=== PATIENT | male | born 1960 | race African-American/Black ===

== ENCOUNTER 2016-05-27 18:58 | Emergency (ER) | payer MEDICARE ==
[2016-05-27 19:08] VITALS: BP 123/65
--- NOTE | 2016-05-27 20:21 | ER Document Report ---
HPI - HPI Patient complains to provider of: body aches Pain Level: 5 Context: patient is a 55 year old female p/w chronic right hip pain and new onset body aches. patient states that he woke up about two days ago and had pain all over that is achy and is different then his normal chronic pain. he takes lyrica, diclofenac and cyclobenzaprine but these are not helping with his new body aches. he denies any fevers, chills, ENT symptoms, n/v, abdominal pain. He has been tolerating PO without difficulty, denies any urinary symptoms he states he is not able to take motrin because of his poor kidney function which he cannot speak into detail about regarding severity. he is not on dialysis new to the area, has a PCP but doesnt know his name and is due to see him for the first time this week Past medical history significant for ulcer arthritis, hype pressure, kidney disease undisclosed stage. - DERM Skin Color: Normal Past Medical History - Social History Smoking Status: Never Smoker Family History: Reviewed & Not Pertinent Patient has suicidal ideation: No Patient has homicidal ideation: No Renal/ Medical History: Denies: Hx Peritoneal Dialysis Vertical Provider Document - CONSTITUTIONAL Agree With Documented VS: Yes Exam Limitations: No Limitations General Appearance: WD/WN, No Apparent Distress Notes: PHYSICAL EXAM GENERAL: Alert, interacts well. HEAD: Normocephalic, atraumatic. EYES: Pupils equal, round, and reactive to light. Extraocular movements intact. ENT: Oral mucosa moist, tongue midline. NECK: Full range of motion. Supple. Trachea midline. LUNGS: Clear to auscultation bilaterally, no wheezes, rales, or rhonchi. No respiratory distress. HEART: Regular rate and rhythm. No murmurs, gallops, or rubs. ABDOMEN: Soft, nondistended, nontender. No guarding, rebound, or rigidity.. Bowel sounds present in all 4 quadrants. EXTREMITIES: Moves all 4 extremities spontaneously. No edema, radial and dorsalis pedis pulses 2/4 bilaterally. No cyanosis. FROM NEUROLOGICAL: Alert and oriented x4. Normal speech. PSYCH: Normal affect, normal mood. SKIN: Warm, dry, normal turgor. No rashes or lesions noted. - INFECTION CONTROL TRAVEL OUTSIDE OF THE [place] IN LAST 30 DAYS: No - RESPIRATORY O2 Sat by Pulse Oximetry: 100 - DERM Integumentary: Dry Course - Re-evaluation Re-evalutation: 05/27/16 21:49 Discussed with patient that we do not manage chronic pain guarding his body aches in questional history of chronic kidney disease, a urinalysis and basic metabolic panel were sent. There were no electrolyte abnormalities or evidence of dehydration or elevated renal function. No evidence of dehydration on urinalysis. Discussed with patient to follow-up with primary care on this coming week. - Vital Signs Vital signs: Temp Pulse Resp BP Pulse Ox 97.7 F 75 18 123/65 100 05/27/16 19:05 05/27/16 19:05 05/27/16 19:05 05/27/16 19:05 05/27/16 19:05 - Laboratory Result Diagrams: 05/27/16 20:15 Discharge - Discharge Clinical Impression: Body aches, Chronic pain Condition: Good Disposition: HOME, SELF-CARE Additional Instructions: There were no acute findings on your blood work today Please follow up with your primary care doctor this week Chronic Pain Control Stress, inactivity, and depression make pain more severe regardless of the cause of the pain. Stress and poor physical condition can cause pain such as headaches and backache. Relaxation: Rest in a quiet place with your eyes closed for 20 minutes twice daily. Concentrate on a pleasant image, or simply "feel" your breathing. Clear your mind. Stress management: Deal with your "stressors." Either take action, or eliminate the stressor from your life. Don't let things hang over you. Accept those things you can't change. Nutrition: Eat small, balanced meals -- don't skip, don't overeat. Meals should be high-carbohydrate, low-sugar, low-fat. Exercise: Exercise helps painful conditions and eases stress. Get 30 minutes of moderate exercise, five days a week. Do an activity that does not flare your pain. Precautions: Pain which continues to disrupt daily activities, or which changes in nature, requires a medical evaluation. Pain Clinic referral is available. We do not manage chronic pain in the Emergency Department. 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 We do not provide repeated medication management of chronic painful conditions. If you wish, we can provide the name of local pain management physicians.
[2016-05-27 20:39] LABS: APPEARANCE,URINE CLEAR; BILIRUBIN,URINE NEGATIVE (NEGATIVE); GLUCOSE, URINE NEGATIVE (NEGATIVE); KETONES,URINE NEGATIVE (NEGATIVE); LEUKOCYTE ESTERASE,URINE NEGATIVE (NEGATIVE); NITRITE,URINE NEGATIVE (NEGATIVE); PROTEIN,URINE NEGATIVE (NEGATIVE); URINE SPECIFIC GRAVITY 1.011; UROBILINOGEN,URINE NEGATIVE mg/dL (<2.0)
[2016-05-27 20:54] LABS: ANION GAP 10 (5-19); BLOOD UREA NITROGEN 13 mg/dL (7-20); CALCIUM 9.9 mg/dL (8.4-10.2); CARBON DIOXIDE 27 mmol/L (22-30); CHLORIDE 107 mmol/L (98-107); CREATINE KINASE 116 U/L (55-170); CREATININE RESULT 1.24 mg/dL (0.52-1.25); GLUCOSE 87 mg/dL (75-110); MAGNESIUM 1.9 mg/dL (1.6-2.3); POTASSIUM 4.8 mmol/L (3.6-5.0); SODIUM 143.9 mmol/L (137-145)
== END 2016-05-27 21:10 | disposition home or self-care (01) ==
LOC: ER 18:58
DX: M79.1 Myalgia (principal); G89.29 Other chronic pain; M25.551 Pain in right hip; I12.9 Hypertensive chronic kidney disease with stage 1 through stage 4 chronic kidney disease, or unspecified chronic kidney disease; N18.9 Chronic kidney disease, unspecified
CPT/HCPCS: 36415; 80048; 81001; 82550; 83735; 99283

== ENCOUNTER 2016-11-05 05:30 | Emergency (ER) | payer MEDICARE, MEDICAID ==
[2016-11-05] MEDS ORDERED: LIDOCAINE 5% (700 MG) TRANSDERMAL ADH..PATCH TP ONE (06:31)
--- NOTE | 2016-11-05 07:30 | ER Document Report ---
ED General - General Chief Complaint: Hip Pain Stated Complaint: HIP PAIN Time Seen by Provider: 11/05/16 06:04 TRAVEL OUTSIDE OF THE [place] IN LAST 30 DAYS: No - HPI Patient complains to provider of: Left hip pain Notes: Patient coming in for evaluation left hip pain. Patient states history of arthritis hip pain increased over the last 2 days states pain radiates from his left hip down the anterior portion of his thigh to his knee down to his ankle. Denies any pain in the back of his leg. Denies any history of trauma. Patient states no relief with his medications at home which include Lyrica and Percocet. Patient is resting comfortably upon my evaluation per - Related Data Allergies/Adverse Reactions: No Known Allergies Allergy (Unverified 11/05/16 05:32) Past Medical History - Social History Smoking Status: Unknown if Ever Smoked Family History: Reviewed & Not Pertinent - Past Medical History Cardiac Medical History: Reports: Hx Hypertension Renal/ Medical History: Denies: Hx Peritoneal Dialysis Musculoskeltal Medical History: Reports Hx Arthritis Review of Systems - Review of Systems Constitutional: No symptoms reported EENT: No symptoms reported Cardiovascular: No symptoms reported Respiratory: No symptoms reported Gastrointestinal: No symptoms reported Genitourinary: No symptoms reported Male Genitourinary: No symptoms reported Musculoskeletal: Other - hip pain Skin: No symptoms reported Hematologic/Lymphatic: No symptoms reported Neurological/Psychological: No symptoms reported -: Yes All other systems reviewed and negative Physical Exam - Vital signs Vitals: Temp Pulse Resp BP Pulse Ox 97.4 F 77 17 140/85 H 99 11/05/16 05:34 11/05/16 05:34 11/05/16 05:34 11/05/16 05:34 11/05/16 05:34 Interpretation: Normal - General General appearance: Appears well, Alert - HEENT Head: Normocephalic, Atraumatic Eyes: Normal Pupils: PERRL - Respiratory Respiratory status: No respiratory distress Chest status: Nontender Breath sounds: Normal Chest palpation: Normal - Cardiovascular Rhythm: Regular Heart sounds: Normal auscultation Murmur: No - Abdominal Inspection: Normal Distension: No distension Bowel sounds: Normal Tenderness: Nontender Organomegaly: No organomegaly - Back Back: Normal, Nontender - Extremities General upper extremity: Normal inspection, Nontender, Normal color, Normal ROM , Normal temperature General lower extremity: Normal inspection, Tender - Tenderness to palpation of the left hip, Normal color, Normal ROM, Normal temperature, Normal weight bearing. No: Tari's sign - Neurological Neuro grossly intact: Yes Cognition: Normal Orientation: AAOx4 [place] Coma Scale Eye Opening: Spontaneous [place] Coma Scale Verbal: Oriented [place] Coma Scale Motor: Obeys Commands Arrow[place] Coma Scale Total: 15 Speech: Normal Motor strength normal: LUE, RUE, LLE, RLE Sensory: Normal - Psychological Associated symptoms: Normal affect, Normal mood - Skin Skin Temperature: Warm Skin Moisture: Dry Skin Color: Normal Course - Re-evaluation Re-evalutation: 11/05/16 13:57 X-rays negative patient will be discharged on follow-up primary care physician more likely underlying etiology exacerbation of patient's arthritis pain - Vital Signs Vital signs: Temp Pulse Resp BP Pulse Ox 98.0 F 57 L 18 120/72 99 11/05/16 08:37 11/05/16 08:37 11/05/16 08:37 11/05/16 08:37 11/05/16 08:37 Discharge - Discharge Clinical Impression: Hip pain Qualifiers: Laterality: left Qualified Code(s): M25.552 - Pain in left hip Condition: Good Disposition: HOME, SELF-CARE Instructions: Arthralgia ([facility]), Arthritis ([facility]), Ice Packs ([facility]), Warm Packs ( [facility]) Additional Instructions: Your x-ray does not show any signs of any acute pathology there are arthritic changes of the left hip. More likely you are having referred pain from her arthritis. I will start you on a dose of steroids that should help out in the next few days. Continue to take her pain medication at home as prescribed he may also use ice and heat packs. Prescriptions: Prednisone [Deltasone] 60 mg PO DAILY #24 tablet Forms: Return to Work
--- NOTE | 2016-11-05 07:31 | RADIOLOGY REPORT (SQ) ---
EXAM DESCRIPTION: HIP LEFT AP/LATERAL COMPLETED DATE/TIME: 11/05/2016 7:12 am REASON FOR STUDY: pain COMPARISON: None. NUMBER OF VIEWS: Two views. TECHNIQUE: AP pelvis and additional frog-leg view of the left hip. LIMITATIONS: None. FINDINGS: MINERALIZATION: Normal. LEFT HIP: No fracture or dislocation. No worrisome bone lesions. RIGHT HIP: No fracture or dislocation. No worrisome bone lesions. Right total hip arthroplasty with 0.2 cm nonspecific lucency at the medial aspect of the acetabular component. PUBIS AND ISCHIUM: No fracture. PELVIS: No fracture. Lower pelvic clips. SACRUM: No fracture or dislocation. No worrisome bone lesions. LOWER LUMBAR SPINE: L3-S1 hardware fusion and intervertebral disc replacement. SOFT TISSUES: No findings. OTHER: No other significant finding. IMPRESSION: No acute findings. TECHNICAL DOCUMENTATION: JOB ID: [id number] [employer]- All Rights Reserved
[2016-11-05] MEDS ORDERED: PREDNISONE 20 MG TABLET PO ONE (08:13)
[2016-11-05 08:39] VITALS: BP 120/72
== END 2016-11-05 08:39 | disposition home or self-care (01) ==
LOC: ER 05:30
DX: M25.552 Pain in left hip (principal); M16.12 Unilateral primary osteoarthritis, left hip
CPT/HCPCS: 99283; 73502; A9270; J7512

== ENCOUNTER 2016-11-18 18:43 | Emergency (ER) | payer MEDICARE, MEDICAID ==
[2016-11-18 20:58] LABS: APPEARANCE,URINE CLEAR; BILIRUBIN,URINE NEGATIVE (NEGATIVE); GLUCOSE, URINE NEGATIVE (NEGATIVE); KETONES,URINE NEGATIVE (NEGATIVE); LEUKOCYTE ESTERASE,URINE NEGATIVE (NEGATIVE); NITRITE,URINE NEGATIVE (NEGATIVE); PROTEIN,URINE NEGATIVE (NEGATIVE); URINE SPECIFIC GRAVITY 1.009; UROBILINOGEN,URINE NEGATIVE mg/dL (<2.0)
[2016-11-18 21:01] LABS: ABSOLUTE LYMPHOCYTES (AUTO) 1.2 10^3/uL (0.5-4.7); ABSOLUTE MONOCYTES (AUTO) 0.6 10^3/uL (0.1-1.4); ABSOLUTE NEUT (AUTO) 9.2 10^3/uL (1.7-8.2); BASOPHILS % (AUTO) 0.3 % (0-2); EOSINOPHILS % (AUTO) 0.1 % (0-6); HEMATOCRIT 46.7 % (37.9-51.0); HGB HCT DIFFERENCE 1.3; LYMPHOCYTES % (AUTO) 11.1 % (13-45); MEAN CORPUSCULAR HEMOGLOBIN 30.1 pg (27.0-33.4); MEAN CORPUSCULAR HGB CONC 34.2 g/dL (32.0-36.0); MEAN CORPUSCULAR VOLUME 88 fl (80-97); MONOCYTES % (AUTO) 5.3 % (3-13); RED CELL DISTRIBUTION WIDTH 15.4 % (11.5-14.0); SEGMENTED NEUTROPHILS % (AUTO) 83.2 % (42-78)
[2016-11-18 21:11] LABS: URINE BARBITURATES SCREEN NEGATIVE; URINE METHADONE SCREEN NEGATIVE; URINE OPIATES LOW NEGATIVE; URINE PHENCYCLIDINE SCREEN NEGATIVE
[2016-11-18 21:12] LABS: ALANINE AMINOTRANSFERASE 79 U/L (21-72); ALBUMIN 4.3 g/dL (3.5-5.0); ALKALINE PHOSPHATASE 97 U/L (38-126); ANION GAP 12 (5-19); ASPARTATE AMINO TRANSFERASE 30 U/L (17-59); BILIRUBIN,DIRECT 0.3 mg/dL (0.0-0.4); BILIRUBIN,TOTAL 0.9 mg/dL (0.2-1.3); BLOOD UREA NITROGEN 16 mg/dL (7-20); CALCIUM 9.7 mg/dL (8.4-10.2); CARBON DIOXIDE 24 mmol/L (22-30); CHLORIDE 104 mmol/L (98-107); CREATININE RESULT 1.33 mg/dL (0.52-1.25); GLUCOSE 116 mg/dL (75-110); POTASSIUM 4.9 mmol/L (3.6-5.0); SODIUM 140.3 mmol/L (137-145); TOTAL PROTEIN 6.9 g/dL (6.3-8.2)
[2016-11-18 21:13] LABS: ALCOHOL < 10 mg/dL (NONE DETECTED)
[2016-11-18] MEDS ORDERED: ZOLPIDEM TARTRATE 5 MG TABLET PO PRN (23:14)
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
--- NOTE | 2016-11-19 02:04 | EKG REPORT ---
SEVERITY:- BORDERLINE ECG - SINUS RHYTHM PROBABLE LEFT ATRIAL ABNORMALITY BORDERLINE LEFT AXIS DEVIATION BORDERLINE T ABNORMALITIES, ANTERIOR LEADS : Confirmed by: Jen Pollock MD 19-Nov-2016 02:04:01
[2016-11-19] MEDS ORDERED: MELOXICAM 15 MG TABLET PO ONE (10:13)
[2016-11-19] MEDS ORDERED: PREGABALIN 50 MG CAPSULE PO ONE (10:13)
[2016-11-19] MEDS ORDERED: LISINOPRIL 5 MG TABLET PO ONE (10:13)
[2016-11-19] MEDS ORDERED: METOPROLOL TARTRATE 25 MG TABLET PO ONE (10:13)
--- NOTE | 2016-11-19 10:15 | ER Document Report ---
Doctor's Note Notes: 11/19/16 10:12 This is a 55-year-old male who presents today with feeling overwhelmed and feeling like he was a harm to himself and others. Initial workup fairly unremarkable. Patient does have some chronic medications. Will review medications that he needs at this time. Patient not requesting narcotics. Requesting his blood pressure medication and Lyrica. We will continue to follow the mental health recommendations at this time for this patient. 11/19/16 16:21 Patient has been cleared by mental health. Stable for discharge and their opinion. Comfortable with this plan as well. Will discharge at this time in stable condition.
[2016-11-19 18:23] VITALS: BP 131/71
== END 2016-11-19 17:50 | disposition home or self-care (01) ==
LOC: ER 18:43
DX: F32.9 Major depressive disorder, single episode, unspecified (principal); F17.200 Nicotine dependence, unspecified, uncomplicated
CPT/HCPCS: 93005; 99284; 36415; 80307 ×4; 85025; 80053; 81001; 93010; 94660; A9270 ×4; J3490

== ENCOUNTER 2016-11-27 13:25 | Emergency (ER) | payer MEDICARE, MEDICAID ==
[2016-11-27] MEDS ORDERED: MORPHINE SULFATE 10 MG/ML INJ IM ONE (14:14)
[2016-11-27] MEDS ORDERED: DEXAMETHASONE SOD PHOS INJ 10 MG/1 ML VIAL IM ONE (14:14)
--- NOTE | 2016-11-27 14:19 | ER Document Report ---
HPI - HPI Patient complains to provider of: left hip pain Pain Level: 5 Context: Patient is a 55-year-old male comes emergency department for chief complaint of chronic left hip pain. He states he is already on gabapentin, Percocet, and Mobic. He sees pain management. He states that he needs a local orthopedic doctor and he was hoping for something to take away the pain for today. He denies swelling, injury, fever, numbness, back pain. He has had an x-ray about 2 weeks ago at this facility for the same issue. - DERM Skin Color: Normal Past Medical History - General Information source: Patient - Social History Smoking Status: Never Smoker Frequency of alcohol use: None Drug Abuse: None Family History: Reviewed & Not Pertinent - Past Medical History Cardiac Medical History: Reports: Hx Hypertension Endocrine Medical History: Denies: Hx Diabetes Mellitus Type 1, Hx Diabetes Mellitus Type 2 Renal/ Medical History: Denies: Hx Peritoneal Dialysis Musculoskeltal Medical History: Reports Hx Arthritis Vertical Provider Document - CONSTITUTIONAL General Appearance: WD/WN - Patient sitting on the bed with no obvious distress , No Apparent Distress - INFECTION CONTROL TRAVEL OUTSIDE OF THE [place] IN LAST 30 DAYS: No - HEENT HEENT: Atraumatic, Normocephalic - NECK Neck: Normal Inspection - RESPIRATORY Respiratory: Breath Sounds Normal, No Respiratory Distress O2 Sat by Pulse Oximetry: 96 - CARDIOVASCULAR Cardiovascular: Regular Rate, Regular Rhythm - GI/ABDOMEN Gastrointestinal: Abdomen Soft, Abdomen Non-Tender - MUSCULOSKELETAL/EXTREMETIES Musculoskeletal/Extremeties: Tender - There is minimal tenderness with palpation over the left anterior thigh and hip, no notable tenderness over the left femoral bursa area, no swelling of the lower extremity, normal distal neurovascular exam, no edema, no erythema - NEURO Level of Consciousness: Awake, Alert, Appropriate Motor/Sensory: No Motor Deficit, No Sensory Deficit Course - Re-evaluation Re-evalutation: No concerning physical exam findings or symptoms suggesting blood clot, infection, or spinal abnormality. Chronic pain. Referring to orthopedics, given dose of pain medication here, discussed return precautions, patient states understanding and agreement. - Vital Signs Vital signs: Temp Pulse Resp BP Pulse Ox 98.4 F 107 H 16 140/77 H 96 11/27/16 13:34 11/27/16 13:34 11/27/16 13:34 11/27/16 13:34 11/27/16 13:34 Discharge - Discharge Clinical Impression: Left hip pain Condition: Stable Disposition: HOME, SELF-CARE Additional Instructions: Please follow-up tomorrow with the orthopedics referral for additional management. Continue your current medications. Return the emergency department for any concerning symptoms including swelling, redness, fever, or any other concerning symptoms. Referrals: ERIN KNOTT MD [ACTIVE STAFF] - 11/28/16
[2016-11-27 14:59] VITALS: BP 142/78
== END 2016-11-27 14:56 | disposition home or self-care (01) ==
LOC: ER 13:25
DX: G89.29 Other chronic pain (principal); M25.552 Pain in left hip; I10 Essential (primary) hypertension
CPT/HCPCS: 99283; 96372; J2270; J1100

== ENCOUNTER 2016-11-30 08:55 | Day surgery (SDC) | payer MEDICAID, MEDICARE ==
[~2016-11-30 08:55] MED LIST: DIPHENHYDRAMINE HCL 50 MG/ML VIAL ONE; EPINEPHRINE INJ 1 MG/10 ML DISP.SYRIN ONE; FLUMAZENIL INJ 0.5 MG/5 ML VIAL ONE; GLUCAGON,HUMAN RECOMB 1 MG INJ ONE; NALOXONE HCL INJ/PF 0.4 MG/1 ML SDV ONE; ONDANSETRON HCL INJ/PF 4 MG/2 ML SDV ONE
[2016-11-30] MEDS: MIDAZOLAM 2 MG/2 ML INJ ONE ×2 (09:20→09:24)
[2016-11-30] MEDS: FENTANYL CITRATE INJ/PF 100 MCG/2 ML AMPUL ONE ×2 (09:22→09:26)
--- NOTE | 2016-11-30 09:48 | Operative Report ---
Operative Report DATE OF SURGERY: 11/30/16 Operative Report: The risks, benefits and alternatives of the procedure including risks of bleeding, perforation requiring surgery are explained to the patient in detail and informed consent was obtained. Patient was taken back to the endoscopy suite and placed in the left, lateral decubital position. A timeout was called. Conscious sedation medications administered. A rectal examination was done which did not reveal any masses, tears or fissures. An Olympus videoscope was inserted into the patient's rectum. The scope was then carefully advanced all the way to the cecum. The cecum was identified by the usual anatomical landmarks including the ileocecal valve as well as the appendiceal office. Photodocumentation was obtained. Scope was then sequentially pulled back via the rest segments of the colon including the ascending colon, hepatic flexure, transverse colon, splenic flexure, descending colon finding to the rectosigmoid portions of the colon. Retroflexion maneuver is performed. PREOPERATIVE DIAGNOSIS: Primary blood per rectum. POSTOPERATIVE DIAGNOSIS: Diverticulosis. There appears to be some bleeding internal hemorrhoids. Mild proctitis status post biopsy OPERATION: Colonoscopy with biopsy SURGEON: MEGGAN JOSÉ ANESTHESIA: Moderate Sedation - 4 mg of Versed, 125 mcg of fentanyl. Conscious sedation monitoring time 30 minutes. TISSUE REMOVED OR ALTERED: As noted above. COMPLICATIONS: None. ESTIMATED BLOOD LOSS: None. INTRAOPERATIVE FINDINGS: As described above. PROCEDURE: Patient tolerated procedure well. No immediate postprocedure complications are noted. Patient discharged in good condition. Discharge date 11/30/2016. Discharge diet: Regular. Discharge activity: Regular. 2-3 week follow-up to discuss findings. We will wait on pathology. Many surgical referral. 5 year surveillance colonoscopy.
[2016-11-30 10:55] VITALS: BP 117/63
== END 2016-11-30 10:40 | disposition home or self-care (01) ==
LOC: END 08:55
PROVIDERS: ATTEND Internal Medicine Gastroenterology
PROC: 0DBP8ZX Excision of Rectum, Via Natural or Artificial Opening Endoscopic, Diagnostic (ICD-10-PCS; principal; 2016-11-30 09:30)
DX: K62.5 Hemorrhage of anus and rectum (principal); K57.30 Diverticulosis of large intestine without perforation or abscess without bleeding; K64.8 Other hemorrhoids; K62.89 Other specified diseases of anus and rectum; M19.90 Unspecified osteoarthritis, unspecified site; M79.7 Fibromyalgia; E66.9 Obesity, unspecified; I12.9 Hypertensive chronic kidney disease with stage 1 through stage 4 chronic kidney disease, or unspecified chronic kidney disease; N18.3 Chronic kidney disease, stage 3 (moderate); G47.30 Sleep apnea, unspecified; Z68.36 Body mass index [BMI] 36.0-36.9, adult; Z87.11 Personal history of peptic ulcer disease; Z79.51 Long term (current) use of inhaled steroids; Z79.899 Other long term (current) drug therapy; Z79.1 Long term (current) use of non-steroidal anti-inflammatories (NSAID)
CPT/HCPCS: 45380; 88305 ×2; J2250; J3010; J0171; J1200; J1610; J2310; J2405; J3490

== ENCOUNTER 2017-01-09 06:01 | Inpatient (IN) | payer MEDICARE, MEDICAID ==
--- NOTE | 2016-12-29 12:46 | RADIOLOGY REPORT (SQ) ---
EXAM DESCRIPTION: CHEST PA/LATERAL COMPLETED DATE/TIME: 12/29/2016 12:29 pm REASON FOR STUDY: PRE OP COMPARISON: None. EXAM PARAMETERS: NUMBER OF VIEWS: two views TECHNIQUE: Digital Frontal and Lateral radiographic views of the chest acquired. RADIATION DOSE: NA LIMITATIONS: none FINDINGS: LUNGS AND PLEURA: No opacities, masses or pneumothorax. No pleural effusion. MEDIASTINUM AND HILAR STRUCTURES: No masses or contour abnormalities. HEART AND VASCULAR STRUCTURES: Heart normal size. No evidence for failure. BONES: No acute findings. HARDWARE: None in the chest. OTHER: No other significant finding. IMPRESSION: NO SIGNIFICANT RADIOGRAPHIC FINDING IN THE CHEST. TECHNICAL DOCUMENTATION: JOB ID: [id number] [employer]- All Rights Reserved
[2016-12-29 12:57] LABS: ABSOLUTE EOSINOPHILS # (AUTO) 0.1 10^3/uL (0.0-0.6); ABSOLUTE LYMPHOCYTES (AUTO) 2.6 10^3/uL (0.5-4.7); ABSOLUTE MONOCYTES (AUTO) 0.7 10^3/uL (0.1-1.4); ABSOLUTE NEUT (AUTO) 2.3 10^3/uL (1.7-8.2); BASOPHILS % (AUTO) 0.7 % (0-2); EOSINOPHILS % (AUTO) 2.3 % (0-6); HEMATOCRIT 47.2 % (37.9-51.0); HEMOGLOBIN 15.8 g/dL (13.5-17.0); HGB HCT DIFFERENCE 0.2; LYMPHOCYTES % (AUTO) 44.5 % (13-45); MEAN CORPUSCULAR HEMOGLOBIN 29.3 pg (27.0-33.4); MEAN CORPUSCULAR HGB CONC 33.5 g/dL (32.0-36.0); MEAN CORPUSCULAR VOLUME 88 fl (80-97); MONOCYTES % (AUTO) 12.3 % (3-13); RED BLOOD COUNT 5.39 10^6/uL (4.35-5.55); SEGMENTED NEUTROPHILS % (AUTO) 40.2 % (42-78); WHITE BLOOD COUNT 5.8 10^3/uL (4.0-10.5)
[2016-12-29 13:00] LABS: APPEARANCE,URINE CLEAR; BILIRUBIN,URINE NEGATIVE (NEGATIVE); GLUCOSE, URINE NEGATIVE (NEGATIVE); KETONES,URINE NEGATIVE (NEGATIVE); LEUKOCYTE ESTERASE,URINE NEGATIVE (NEGATIVE); NITRITE,URINE NEGATIVE (NEGATIVE); PROTEIN,URINE NEGATIVE (NEGATIVE); URINE SPECIFIC GRAVITY 1.017; UROBILINOGEN,URINE NEGATIVE mg/dL (<2.0)
[2016-12-29 13:30] LABS: ANION GAP 14 (5-19); BLOOD UREA NITROGEN 12 mg/dL (7-20); CALCIUM 9.6 mg/dL (8.4-10.2); CARBON DIOXIDE 28 mmol/L (22-30); CHLORIDE 102 mmol/L (98-107); CREATININE RESULT 1.33 mg/dL (0.52-1.25); GLUCOSE 74 mg/dL (75-110); POTASSIUM 4.2 mmol/L (3.6-5.0); SODIUM 143.9 mmol/L (137-145)
--- NOTE | 2016-12-30 09:27 | EKG REPORT ---
SEVERITY:- NORMAL ECG - SINUS RHYTHM : Confirmed by: Nazia Pinzon 30-Dec-2016 09:26:57
[~2017-01-09 06:01] MED LIST changes: +BUPIVACAINE INJ/PF LIPOSOME/PF 266 MG/20 ML SDV INJ PRN; +CEFAZOLIN INJ 1 GM VIAL IV PRN; -DIPHENHYDRAMINE HCL 50 MG/ML VIAL ONE; -EPINEPHRINE INJ 1 MG/10 ML DISP.SYRIN ONE; -FLUMAZENIL INJ 0.5 MG/5 ML VIAL ONE; -GLUCAGON,HUMAN RECOMB 1 MG INJ ONE; +IBUPROFEN 800 MG in NORMAL SALINE 250 ML IV PRN; +LACTATED RINGERS 1000 ML IV PRN; +LANSOPRAZOLE 15 MG TAB.RAP.DR PO PRN; +LIDOCAINE 0.5% INJ-PF (5 MG/ML) 50 ML SDV SUBCUT PRN; -NALOXONE HCL INJ/PF 0.4 MG/1 ML SDV ONE; -ONDANSETRON HCL INJ/PF 4 MG/2 ML SDV ONE; +OXYCODONE HCL SR 10 MG TABLET PO PRN; +THROMBIN (BOVINE) 5000 UNIT EPITAXIS KIT ONE; +THROMBIN (BOVINE) TOPICAL 20000 UNIT VIAL ONE; +VANCOMYCIN HCL 1,000 MG in DEXTROSE 5%-WATER 250 ML IV PRN
[2017-01-09] MEDS ORDERED: BUPIVACAINE INJ/PF LIPOSOME/PF 266 MG/20 ML SDV ONE (08:49)
[2017-01-09] MEDS ORDERED: LIDOCAINE 2% INJ-PF (20 MG/ML) 10 ML AMPUL ONE (09:11)
[2017-01-09] MEDS ORDERED: MIDAZOLAM 2 MG/2 ML INJ ONE (09:12)
[2017-01-09] MEDS ORDERED: FENTANYL CITRATE INJ/PF 100 MCG/2 ML AMPUL ONE ×4 (09:12→11:23)
[2017-01-09] MEDS ORDERED: PROPOFOL INJ 200 MG/20 ML VIAL IV ONE (09:12)
[2017-01-09] MEDS ORDERED: ACETAMINOPHEN 0 ML IV ONE (09:12)
[2017-01-09] MEDS ORDERED: ONDANSETRON HCL INJ/PF 4 MG/2 ML SDV ONE (09:12)
[2017-01-09] MEDS ORDERED: TRANEXAMIC ACID INJ/PF 1,000 MG/10 ML SDV IV ONE ×2 (09:12→13:00)
[2017-01-09] MEDS ORDERED: ACETAMINOPHEN 100 ML IV ONE ×2 (09:13→16:54)
[2017-01-09] MEDS ORDERED: HYDROMORPHONE HCL INJ/PF 2 MG/ML AMPULE ONE (09:26)
[2017-01-09] MEDS ORDERED: MEPERIDINE HCL/PF INJ 25 MG/1 ML DISP.SYRIN IV PRN (10:00)
[2017-01-09] MEDS ORDERED: ONDANSETRON HCL INJ/PF 4 MG/2 ML SDV IV PRN ×3 (10:00→12:00)
[2017-01-09] MEDS ORDERED: PROMETHAZINE HCL INJ 25 MG/1 ML VIAL IV PRN ×2 (10:00)
[2017-01-09] MEDS ORDERED: FENTANYL CITRATE INJ/PF 100 MCG/2 ML AMPUL IV PRN ×3 (10:00)
[2017-01-09] MEDS ORDERED: OXYCODONE-ACETAMINOPHEN 5-325 MG TABLET PO PRN ×2 (10:00)
[2017-01-09] MEDS ORDERED: DIPHENHYDRAMINE HCL 50 MG/ML VIAL IV PRN ×2 (10:00→10:54)
[2017-01-09] MEDS ORDERED: MORPHINE SULFATE 10 MG/ML INJ IV PRN ×3 (10:00→10:54)
[2017-01-09] MEDS ORDERED: ALBUTEROL SULFATE HFA (90 MCG/PUFF) 8 GM MDI (1 MDI/ER DISP) IH PRN ×2 (10:53→12:00)
[2017-01-09] MEDS ORDERED: PREGABALIN PO PRN (10:53)
[2017-01-09] MEDS ORDERED: FLUTICASONE NASAL SPRAY 50 MCG/SPRY 120 SPRAY/16 GM NASL PRN ×2 (10:53→11:30)
[2017-01-09] MEDS ORDERED: MAG HYDROX/AL HYDROX/SIMETH SUSP 30 ML UDCUP PO PRN ×2 (10:54→11:30)
[2017-01-09] MEDS ORDERED: ACETAMINOPHEN 325 MG TABLET PO PRN (10:54)
[2017-01-09] MEDS ORDERED: RINGERS SOLUTION,LACTATED 1,000 ML IV PRN (10:54)
[2017-01-09] MEDS ORDERED: ZOLPIDEM TARTRATE 5 MG TABLET PO PRN ×2 (10:54→11:30)
[2017-01-09] MEDS ORDERED: ONDANSETRON 4 MG TAB.RAPDIS PO PRN ×2 (10:54→12:00)
[2017-01-09] MEDS ORDERED: MORPHINE SULFATE 10 MG/ML INJ IM PRN (10:54)
--- NOTE | 2017-01-09 10:56 | Operative Report ---
Operative Report DATE OF SURGERY: 01/09/17 PREOPERATIVE DIAGNOSIS: Left hip avascular necrosis OPERATION: Left hip arthroplasty SURGEON: ERIN KNOTT 1ST INTERNAL REVIEW AND AUDIT COMPLIANCE: MACK MUKHERJEE ANESTHESIA: GA TISSUE REMOVED OR ALTERED: Femoral head to pathology ESTIMATED BLOOD LOSS: 200 PROCEDURE: Implants used: Femur: [place] Accolade 2 size 5 stem Acetabular shell: 56 mm shell Liner: 36 mm flat cross-link polyethylene liner Head: 36 mm Biolox -5 neck The patient is placed in a right lateral decubitus position on the operating table. The left lower extremity and hindquarter is prepped and draped in a sterile fashion. A curvilinear incision was made over the greater trochanter a posterior approach the hip was taken. The femoral head is dislocated and the femoral neck transected using an oscillating saw. Attention was next turned to the acetabulum. Soft tissues cleared off the acetabulum using electrocautery. The acetabulum was then prepared using a series of hemispherical reamers until a 55 millimeters reamer is seated. Subsequently a 56 millimeters Bruno titanium hemispherical shell is impacted into position and secured with one screw. A standard flat 36 millimeters cross- link liner is impacted into the shell. Attention was next turned to the femur. Access is gained to the femoral canal using a box osteotome to the piriformis fossa. The femur is then prepared using a series of broaches until a number 5 broach is seated. A trial reduction was now performed using a 36 millimeters head with -5 neck. Preoperative leg length was recreated and is excellent anterior posterior stability. A decision was made to proceed with the above construct. All trial implants were removed. The wound is irrigated with pulsed lavage. A number 5 stem is impacted into the femoral canal. A trial reduction was again performed with a 36 mm head and a is 5 neck. Findings as previously. The hip was dislocated one last time and the final Biolox head is impacted onto the trunnion. The hip was reduced. Wound is copiously irrigated with pulsed lavage. Sent closed in layers using interrupted Vicryl followed by jeannie. A sterile dressing is applied and the patient's returned to recovery room in satisfactory patient.
[2017-01-09] MEDS ORDERED: ALBUTEROL SULFATE HFA (90 MCG/PUFF) 200 PUFF/8.5 GM MDI IH PRN (11:17)
--- NOTE | 2017-01-09 11:56 | RADIOLOGY REPORT (SQ) ---
EXAM DESCRIPTION: PELVIS AP COMPLETED DATE/TIME: 01/09/2017 11:32 am REASON FOR STUDY: Post Op Long Cassette in PACU M16.12 UNILATERAL PRIMARY OSTEOARTHRITIS, LEFT HIP COMPARISON: Left hip films 11/05/2016 NUMBER OF VIEWS: One view TECHNIQUE: Digital radiographic images of the pelvis post-procedure LIMITATIONS: None. FINDINGS: BONES: No worrisome or unexpected findings post-procedure. DEVICE: New left total hip replacement with acetabular component anchored with a single screw. SOFT TISSUES: No worrisome findings. Expected postoperative soft tissue changes. Patient has surgical clips in the pelvis, a right hip replacement and lower lumbar fusion with hardwa re IMPRESSION: SATISFACTORY POSTOPERATIVE PELVIS. TECHNICAL DOCUMENTATION: JOB ID: [id number] [employer]- All Rights Reserved
[2017-01-09] MEDS ORDERED: SUCCINYLCHOLINE CHLORIDE INJ 200 MG/10 ML VIAL ONE (13:20)
[2017-01-09] MEDS: PREGABALIN 100 MG CAPSULE PO SCH ×2 (15:32→22:04)
[2017-01-09] MEDS: TRAMADOL HCL 50 MG TABLET PO PRN (16:40)
[2017-01-09] MEDS: CYCLOBENZAPRINE HCL 10 MG TABLET PO SCH (19:23)
[2017-01-09] MEDS: IBUPROFEN 800 MG in NORMAL SALINE 250 ML IV SCH (19:24)
[2017-01-09] MEDS ORDERED: DICLOFENAC SODIUM 25 MG TABLET.DR PO SCH (22:00)
[2017-01-09] MEDS: METOPROLOL TARTRATE 50 MG TABLET PO SCH (22:04)
[2017-01-09] MEDS: OXYCODONE HCL SR 10 MG TABLET PO SCH (22:06)
[2017-01-09] MEDS ORDERED: VANCOMYCIN HCL 1,000 MG in DEXTROSE 5%-WATER 250 ML IV ONE (22:55)
[2017-01-10] MEDS: IBUPROFEN 800 MG in NORMAL SALINE 250 ML IV SCH ×3 (02:43→18:19)
[2017-01-10] MEDS: OXYCODONE HCL IR 5 MG TABLET PO PRN (02:43)
[2017-01-10] MEDS: PREGABALIN 100 MG CAPSULE PO SCH ×3 (05:04→21:47)
[2017-01-10] MEDS: LANSOPRAZOLE 30 MG TAB.RAP.DR PO SCH (05:04)
[2017-01-10] MEDS: TRAMADOL HCL 50 MG TABLET PO PRN (06:03)
--- NOTE | 2017-01-10 06:51 | PDOC PROGRESS REPORT ---
Subjective Progress Note for:: 01/10/17 Subjective:: Patient reports better complete pain control this morning. Reason For Visit: AVASCULAR NECROSIS OF THE LEFT HIP Physical Exam Vital Signs: Temp Pulse Resp BP Pulse Ox 36.8 C 63 16 110/59 L 98 01/10/17 04:00 01/10/17 06:02 01/10/17 04:00 01/10/17 06:02 01/10/17 04:00 Intake & Output 01/08/17 01/09/17 01/10/17 06:59 06:59 06:59 Intake Total 5420 Output Total 5010 Balance 410 Weight 108.8 kg General appearance: PRESENT: no acute distress Head exam: PRESENT: normocephalic Respiratory exam: PRESENT: unlabored Cardiovascular exam: PRESENT: RRR Pulses: PRESENT: +1 pedal pulses bilateral Vascular exam: PRESENT: normal capillary refill Extremities exam: PRESENT: other - Left hip dressing with moderate drainage. This is changed this morning. Leg lengths are equal. Distal neurovascular examination is intact. Neurological exam: PRESENT: alert, awake, oriented to person, oriented to place , oriented to time, oriented to situation. ABSENT: motor sensory deficit Psychiatric exam: PRESENT: appropriate affect, normal mood. ABSENT: homicidal ideation, suicidal ideation Skin exam: PRESENT: dry, intact, warm. ABSENT: cyanosis, rash Results Laboratory Results: 12/29/16 12:10 12/29/16 12:10 01/09/17 08:36 Blood Type O POSITIVE Antibody Screen NEGATIVE Impressions: Chest X-Ray 12/29/16 12:19 IMPRESSION: NO SIGNIFICANT RADIOGRAPHIC FINDING IN THE CHEST. Pelvis X-Ray 01/09/17 10:56 IMPRESSION: SATISFACTORY POSTOPERATIVE PELVIS. Status: Imported from PACS Assessment & Plan - Diagnosis (1) Avascular necrosis of bone of left hip Is this a current diagnosis for this admission?: Yes Plan: 56-year-old black male with an idiopathic left hip avascular necrosis postop day 1 from left hip arthroplasty. Patient made limited progress with physical therapy yesterday. Anticipate ongoing rehabilitation today and potential discharge home tomorrow with home health physical therapy and nursing. - Time Time Spent with patient: 15-24 minutes Anticipated discharge: Home with Homehealth Within: within 24 hours
[2017-01-10 07:22] LABS: HEMATOCRIT 37.2 % (37.9-51.0); HEMOGLOBIN 12.3 g/dL (13.5-17.0); HGB HCT DIFFERENCE -0.3; MEAN CORPUSCULAR HEMOGLOBIN 29.4 pg (27.0-33.4); MEAN CORPUSCULAR HGB CONC 33.2 g/dL (32.0-36.0); MEAN CORPUSCULAR VOLUME 89 fl (80-97); RED BLOOD COUNT 4.19 10^6/uL (4.35-5.55); WHITE BLOOD COUNT 8.6 10^3/uL (4.0-10.5)
[2017-01-10 07:32] LABS: ANION GAP 10 (5-19); BLOOD UREA NITROGEN 8 mg/dL (7-20); CALCIUM 8.8 mg/dL (8.4-10.2); CARBON DIOXIDE 29 mmol/L (22-30); CHLORIDE 103 mmol/L (98-107); CREATININE RESULT 1.33 mg/dL (0.52-1.25); GLUCOSE 90 mg/dL (75-110); POTASSIUM 4.1 mmol/L (3.6-5.0); SODIUM 142.1 mmol/L (137-145)
[2017-01-10] MEDS ORDERED: TRANEXAMIC ACID INJ/PF 1,000 MG/10 ML SDV IV ONE ×3 (08:00→15:00)
[2017-01-10] MEDS: LISINOPRIL 10 MG TABLET PO SCH (09:40)
[2017-01-10] MEDS: OXYCODONE HCL SR 10 MG TABLET PO SCH ×2 (09:41→21:47)
[2017-01-10] MEDS: ASPIRIN 81 MG TABLET, ENT COATED PO SCH (09:42)
[2017-01-10] MEDS: CYCLOBENZAPRINE HCL 10 MG TABLET PO SCH ×2 (09:42→18:19)
[2017-01-10] MEDS: METOPROLOL TARTRATE 50 MG TABLET PO SCH ×2 (09:43→21:47)
[2017-01-10] MEDS: MORPHINE SULFATE 10 MG/ML INJ IV PRN (11:44)
[2017-01-11] MEDS: IBUPROFEN 800 MG in NORMAL SALINE 250 ML IV SCH ×2 (01:20→10:17)
[2017-01-11] MEDS: LANSOPRAZOLE 30 MG TAB.RAP.DR PO SCH (05:40)
[2017-01-11] MEDS: TRAMADOL HCL 50 MG TABLET PO PRN (05:40)
[2017-01-11] MEDS: PREGABALIN 100 MG CAPSULE PO SCH ×3 (05:40→21:47)
[2017-01-11 06:27] LABS: HEMATOCRIT 36.8 % (37.9-51.0); HEMOGLOBIN 12.3 g/dL (13.5-17.0); HGB HCT DIFFERENCE 0.1; MEAN CORPUSCULAR HEMOGLOBIN 29.5 pg (27.0-33.4); MEAN CORPUSCULAR HGB CONC 33.4 g/dL (32.0-36.0); MEAN CORPUSCULAR VOLUME 89 fl (80-97); RED BLOOD COUNT 4.16 10^6/uL (4.35-5.55); RED CELL DISTRIBUTION WIDTH 15.1 % (11.5-14.0); WHITE BLOOD COUNT 8.2 10^3/uL (4.0-10.5)
--- NOTE | 2017-01-11 07:10 | PDOC PROGRESS REPORT ---
Subjective Progress Note for:: 01/11/17 Subjective:: 56-year-old -Australian male 2 days status post total left hip arthroplasty. Patient sitting upright in hospital bed awake and alert this morning. He states that he is very comfortable overnight and is looking forward to going to rehab tomorrow. Patient also states his dressing is remained clean and dry. Reason For Visit: AVASCULAR NECROSIS OF THE LEFT HIP Physical Exam Vital Signs: Temp Pulse Resp BP Pulse Ox 36.9 C 85 18 119/57 L 97 01/10/17 23:55 01/10/17 23:55 01/10/17 23:55 01/10/17 23:55 01/10/17 23:55 Intake & Output 01/10/17 01/11/17 01/12/17 06:59 06:59 06:59 Intake Total 5420 2380 Output Total 5010 1780 Balance 410 600 Weight 108.8 kg General appearance: PRESENT: no acute distress, well-developed, well-nourished Head exam: PRESENT: atraumatic, normocephalic Respiratory exam: PRESENT: unlabored Pulses: PRESENT: normal dorsalis pedis pul, +2 pedal pulses bilateral Additional comments: Patient's left lower extremity is in full extension with patient sitting upright in hospital bed. His OpSite dressing is clean dry and intact. He is nontender to palpation. His sensorimotor functions are intact he has brisk capillary refill to toes on bilateral feet he has minimal pedal edema and his distal neurovascular exam is intact. Musculoskeletal exam: PRESENT: ambulatory Additional comments: Patient makes progress with physical therapy ambulating 70 feet independently. He will continue to work with physical therapy throughout her stay in the hospital as well as when he is discharged to his extended care facility. He will work to continue to improve strength range of motion of left lower extremity. Neurological exam: PRESENT: alert, awake, oriented to person, oriented to place , oriented to time, oriented to situation, CN II-XII grossly intact. ABSENT: motor sensory deficit Psychiatric exam: PRESENT: appropriate affect, normal mood. ABSENT: homicidal ideation, suicidal ideation Skin exam: PRESENT: dry, intact, warm. ABSENT: cyanosis, rash Results Laboratory Results: 01/11/17 05:32 01/10/17 06:51 01/10/17 01/10/17 01/11/17 06:51 06:51 05:32 WBC 8.6 8.2 RBC 4.19 L 4.16 L Hgb 12.3 L 12.3 L Hct 37.2 L 36.8 L MCV 89 89 MCH 29.4 29.5 MCHC 33.2 33.4 RDW 15.0 H 15.1 H Plt Count 172 188 Sodium 142.1 Potassium 4.1 Chloride 103 Carbon Dioxide 29 Anion Gap 10 BUN 8 Creatinine 1.33 H Est GFR ( Amer) > 60 Est GFR (Non-Af Amer) 56 L Glucose 90 Calcium 8.8 Impressions: Chest X-Ray 12/29/16 12:19 IMPRESSION: NO SIGNIFICANT RADIOGRAPHIC FINDING IN THE CHEST. Pelvis X-Ray 01/09/17 10:56 IMPRESSION: SATISFACTORY POSTOPERATIVE PELVIS. Assessment & Plan - Diagnosis (1) Avascular necrosis of bone of left hip Is this a current diagnosis for this admission?: Yes - Plan Summary Plan Summary: 56-year-old -Australian male 2 days status post total left hip arthroplasty. Patient's pain is well controlled and he is comfortable overnight. He has made some progress with physical therapy ambulating 70 feet independently. He will continue to work with physical therapy while in hospital and at his extended care facility to improve strength and range of motion of left lower extremity. We will plan for discharge to an extended care facility tomorrow.
[2017-01-11] MEDS: LISINOPRIL 10 MG TABLET PO SCH (09:27)
[2017-01-11] MEDS: OXYCODONE HCL SR 10 MG TABLET PO SCH (09:27)
[2017-01-11] MEDS: METOPROLOL TARTRATE 50 MG TABLET PO SCH ×2 (09:28→21:47)
[2017-01-11] MEDS: CYCLOBENZAPRINE HCL 10 MG TABLET PO SCH ×2 (09:28→17:49)
[2017-01-11] MEDS: ASPIRIN 81 MG TABLET, ENT COATED PO SCH (09:28)
[2017-01-11] MEDS: OXYCODONE HCL IR 5 MG TABLET PO PRN (17:49)
[2017-01-11] MEDS: MORPHINE SULFATE 10 MG/ML INJ IV PRN ×2 (18:52→22:33)
[2017-01-11] MEDS: DICLOFENAC SODIUM 25 MG TABLET.DR PO SCH (21:47)
[2017-01-12] MEDS: PREGABALIN 100 MG CAPSULE PO SCH ×2 (05:24→14:05)
[2017-01-12] MEDS: LANSOPRAZOLE 30 MG TAB.RAP.DR PO SCH (05:24)
--- NOTE | 2017-01-12 05:52 | PDOC TRANSFER SUMMARY ---
General - Admit/Disc Date/PCP Admission Date/Primary Care Provider: 01/09/17 07:50 ANABELA LAI PA-C Discharge Date: 01/12/17 - Discharge Diagnosis (1) Avascular necrosis of bone of left hip Is this a current diagnosis for this admission?: Yes - Additional Information Resuscitation Status: Full Code Discharge Diet: As Tolerated, Regular Discharge Activity: Balance Activity w/Rest, No Driving, No tub bath Home Medications: Albuterol Sulfate [Ventolin HFA MDI 18 GM] 2 puff IH Q4H PRN 11/29/16 Cyclobenzaprine HCl 10 mg PO BID 11/29/16 Fluticasone Propionate [Flonase Nasal Garrett 50 Mcg/Garrett 16 gm] 2 sprays NASL DAILY PRN 11/29/16 Lisinopril 10 mg PO DAILY 11/29/16 Metoprolol Tartrate 50 mg PO BID 11/29/16 Diclofenac Sodium 75 mg PO BID 12/29/16 Pregabalin [Lyrica 100 mg Capsule] 1 tab PO TID 12/29/16 Pregabalin [Lyrica] 1 dose PO ASDIR PRN 12/29/16 Aspirin [Ecotrin 81 mg EC Tablet] 81 mg PO DAILY tabec 01/12/17 Oxycodone HCl [Oxy-Ir 5 mg Tablet] 5 mg PO Q6HP PRN tablet 01/12/17 History of Present Illness Admission Date/PCP: 01/09/17 07:50 ANABELA LAI PA-C History of Present Illness: JOHNSON TAMEZ is a 56 year old male with progressive left hip pain and functional disability secondary to avascular necrosis. Patient is admitted for elective left hip arthroplasty. Hospital Course Hospital Course: Patient is admitted through the operating room where he undergoes uncompensated left hip arthroplasty. Is returned to the floor in satisfactory condition. Analgesic medication is adequate. Patient makes excellent progress with physical therapy. Left hip wound remains dry. Hematocrit is above 36%. Patient ambulated 160 feet on the day prior to transfer. Physical Exam Vital Signs: Temp Pulse Resp BP Pulse Ox 37.9 C 79 17 115/57 L 97 01/11/17 23:23 01/11/17 23:23 01/11/17 23:23 01/11/17 23:23 01/11/17 23:23 Intake & Output 01/10/17 01/11/17 01/12/17 06:59 06:59 06:59 Intake Total 5420 2380 1213 Output Total 5010 1780 550 Balance 410 600 663 Weight 108.8 kg General appearance: PRESENT: no acute distress Head exam: PRESENT: normocephalic Respiratory exam: PRESENT: unlabored Cardiovascular exam: PRESENT: RRR Pulses: PRESENT: +1 pedal pulses bilateral Vascular exam: PRESENT: normal capillary refill GI/Abdominal exam: PRESENT: soft Rectal exam: PRESENT: deferred Musculoskeletal exam: PRESENT: other - Left hip dressing clean dry and intact. Leg lengths are equal. Distal neurovascular examination is intact. Neurological exam: PRESENT: alert, awake, oriented to person, oriented to place , oriented to time, oriented to situation. ABSENT: motor sensory deficit Psychiatric exam: PRESENT: appropriate affect, normal mood. ABSENT: homicidal ideation, suicidal ideation Skin exam: PRESENT: dry, intact, warm. ABSENT: cyanosis, rash Results Laboratory Results: 01/11/17 05:32 01/10/17 06:51 01/11/17 05:32 WBC 8.2 RBC 4.16 L Hgb 12.3 L Hct 36.8 L MCV 89 MCH 29.5 MCHC 33.4 RDW 15.1 H Plt Count 188 Impressions: Chest X-Ray 12/29/16 12:19 IMPRESSION: NO SIGNIFICANT RADIOGRAPHIC FINDING IN THE CHEST. Pelvis X-Ray 01/09/17 10:56 IMPRESSION: SATISFACTORY POSTOPERATIVE PELVIS. Status: Imported from PACS Transfer Plan - Disposition Transfer Plan: Patient to be transferred to a nursing home facility for ongoing postoperative rehabilitation. Patient can follow-up with Dr. Angeles in the [facility] for surgery in 2 weeks for staple removal.
[2017-01-12 07:16] LABS: HEMATOCRIT 34.3 % (37.9-51.0); HEMOGLOBIN 11.5 g/dL (13.5-17.0); HGB HCT DIFFERENCE 0.2; MEAN CORPUSCULAR HEMOGLOBIN 29.7 pg (27.0-33.4); MEAN CORPUSCULAR HGB CONC 33.5 g/dL (32.0-36.0); MEAN CORPUSCULAR VOLUME 89 fl (80-97); RED BLOOD COUNT 3.87 10^6/uL (4.35-5.55); WHITE BLOOD COUNT 9.4 10^3/uL (4.0-10.5)
[2017-01-12 09:27] VITALS: BP 119/66
[2017-01-12] MEDS: METOPROLOL TARTRATE 50 MG TABLET PO SCH (10:56)
[2017-01-12] MEDS: ASPIRIN 81 MG TABLET, ENT COATED PO SCH (10:57)
[2017-01-12] MEDS: LISINOPRIL 10 MG TABLET PO SCH (10:57)
[2017-01-12] MEDS: DICLOFENAC SODIUM 25 MG TABLET.DR PO SCH (10:57)
[2017-01-12] MEDS: CYCLOBENZAPRINE HCL 10 MG TABLET PO SCH (10:58)
[2017-01-12] MEDS: TRAMADOL HCL 50 MG TABLET PO PRN (11:05)
[2017-01-12] MEDS: OXYCODONE HCL IR 5 MG TABLET PO PRN (15:51)
== END 2017-01-12 16:25 | DRG 470 ==
LOC: INOR 07:50 → 4S 12:17
PROVIDERS: ADMIT Orthopaedic Surgery; ATTEND Orthopaedic Surgery
PROC: 0SRB02A Replacement of Left Hip Joint with Metal on Polyethylene Synthetic Substitute, Uncemented, Open Approach (ICD-10-PCS; principal; 2017-01-09 10:00)
DX: M87.052 Idiopathic aseptic necrosis of left femur (principal); I12.9 Hypertensive chronic kidney disease with stage 1 through stage 4 chronic kidney disease, or unspecified chronic kidney disease; N18.3 Chronic kidney disease, stage 3 (moderate); M79.7 Fibromyalgia; E66.9 Obesity, unspecified; Z68.37 Body mass index [BMI] 37.0-37.9, adult; Z85.46 Personal history of malignant neoplasm of prostate; Z87.891 Personal history of nicotine dependence
CPT/HCPCS: 01214; 36415; 71020; 72170; 80048; 81001; 85025; 85027; 86850; 86900; 86901; 88304; 88311; 93005; 93010; 94799; C1713; C9290; G8978-GP; G8979-GP; G8987-GO; G8988-GO; J0131; J0330; J0690; J1170; J1741; J2250; J2270; J2405; J2704; J3010; J3370; J3490; J7050; J7060; J7120

== ENCOUNTER 2017-01-25 06:24 | Emergency (ER) | payer MEDICARE, MEDICAID ==
[2017-01-25] MEDS ORDERED: NORMAL SALINE 1000 ML 1,000 ML IV ONE (06:42)
[2017-01-25] MEDS ORDERED: ONDANSETRON HCL INJ/PF 4 MG/2 ML SDV IV ONE (06:44)
[2017-01-25] MEDS ORDERED: MORPHINE SULFATE 10 MG/ML INJ IV ONE (06:44)
--- NOTE | 2017-01-25 06:44 | ER Document Report ---
ED Hip Pain/Injury - General Mode of Arrival: Ambulatory Information source: Patient TRAVEL OUTSIDE OF THE [place] IN LAST 30 DAYS: No <JASWINDER VAZQUEZ - Last Filed: 01/25/17 10:41> <ABHINAV CORREA - Last Filed: 01/25/17 13:12> - General Chief Complaint: Hip Pain Stated Complaint: HIP PAIN Time Seen by Provider: 01/25/17 06:35 Notes: Patient is a 56-year-old male that presents to the emergency department today with complaints of pain in his left hip. Patient had a left hip replacement on 01/09 secondary to avascular necrosis. Patient states he woke up at 0500 this morning with purulent drainage that had not been there previously. Patient states he had a follow-up appointment on Monday, 5 days ago, and he had no drainage at that time either. Patient states his pain has not changed, it is the same that it has been, it has not increased since seeing this drainage. Patient is not taking any antibiotics. Patient denies any odor to the discharge. Patient denies a fever or fall/trauma to the area. (JASWINDER VAZQUEZ) - Related Data Allergies/Adverse Reactions: No Known Allergies Allergy (Verified 01/25/17 07:23) Past Medical History - General Information source: Patient - Social History Smoking Status: Unknown if Ever Smoked Cigarette use (# per day): No Frequency of alcohol use: None Drug Abuse: None Lives with: Family Family History: Reviewed & Not Pertinent - Past Medical History Cardiac Medical History: Reports: Hx Hypertension Pulmonary Medical History: Reports: Hx Sleep Apnea - has a machine Musculoskeltal Medical History: Reports Hx Arthritis - hip Past Surgical History: Reports: Hx Cholecystectomy, Hx Orthopedic Surgery - 3 "back" surgeries, left hip surgery - Immunizations Hx Diphtheria, Pertussis, Tetanus Vaccination: No <JASWINDER VAZQUEZ - Last Filed: 01/25/17 10:41> Review of Systems - Review of Systems Constitutional: denies: Fever EENT: No symptoms reported Cardiovascular: No symptoms reported Respiratory: No symptoms reported Gastrointestinal: No symptoms reported Genitourinary: No symptoms reported Male Genitourinary: No symptoms reported Musculoskeletal: See HPI, Joint pain - left hip Skin: No symptoms reported Hematologic/Lymphatic: No symptoms reported Neurological/Psychological: No symptoms reported -: Yes All other systems reviewed and negative <JASWINDER VAZQUEZ - Last Filed: 01/25/17 10:41> Physical Exam - Vital signs Interpretation: Normal - General General appearance: Alert, Other - Appears uncomfortable In distress: None - HEENT Head: Normocephalic, Atraumatic Eyes: Normal Cornea: Normal Extraocular movements intact: Yes Pharynx: Normal - Respiratory Respiratory status: No respiratory distress Breath sounds: Normal - Cardiovascular Rhythm: Regular - Abdominal Inspection: Normal Tenderness: Nontender - Back Back: Normal - Extremities General upper extremity: Normal inspection, Nontender, Normal ROM, Normal strength General lower extremity: Tender, Normal color, Other. No: Normal inspection - Neurological Neuro grossly intact: Yes Cognition: Normal Orientation: AAOx4 [place] Coma Scale Eye Opening: Spontaneous [place] Coma Scale Verbal: Oriented [place] Coma Scale Motor: Obeys Commands [place] Coma Scale Total: 15 Speech: Normal Motor strength normal: LUE, RUE, LLE, RLE Sensory: Normal - Skin Skin Temperature: Warm Skin Moisture: Dry Skin Color: Other - Wound to left hip that is held with jeannie. Patient with discharge from the area. Tender to palpation. No erythema. No foul odor. Culture obtained <ABHINAV CORREA - Last Filed: 01/25/17 13:12> - Vital signs Vitals: Temp Pulse Resp BP Pulse Ox 98 F 98 18 129/78 H 99 01/25/17 06:27 01/25/17 06:27 01/25/17 06:27 01/25/17 06:27 01/25/17 06:27 Course - Laboratory Result Diagrams: 01/25/17 06:58 01/25/17 06:58 <JASWINDER VAZQUEZ - Last Filed: 01/25/17 10:41> - Laboratory Result Diagrams: 01/25/17 06:58 01/25/17 06:58 <ABHINAV CORREA - Last Filed: 01/25/17 13:12> - Re-evaluation Re-evalutation: 01/25/17 Patient is a 56-year-old male who comes in concerned about discharge from his left hip incision. Patient is afebrile with stable vitals. Patient has had pain since his surgery and denies any increase in pain today. Patient is able to ambulate as well as he was able to ambulate a week ago. Patient does not have a fever. His blood work is within normal limits except for an elevation of ESR and CRP. Patient has been discussed with the surgeon, Dr. Angeles would like to see the patient in the office immediately today. Patient initially did not have a ride to the office but he was able to obtain one. Patient has had a wound culture obtained and will be discharged to Dr. Angeles's office for further evaluation of his wound concerns. (ABHINAV CORREA) - Vital Signs Vital signs: Temp Pulse Resp BP Pulse Ox 98 F 98 19 127/74 H 98 01/25/17 06:27 01/25/17 06:27 01/25/17 12:01 01/25/17 12:01 01/25/17 12:01 - Laboratory Laboratory results interpreted by me: 01/25/17 01/25/17 01/25/17 06:58 06:58 06:58 Hgb 13.0 L RDW 15.3 H ESR 78 H Creatinine 1.51 H Est GFR ( Amer) 58 L Est GFR (Non-Af Amer) 48 L Glucose 117 H Direct Bilirubin 0.5 H C-Reactive Protein Urine Urobilinogen Urine Ascorbic Acid 01/25/17 01/25/17 06:58 09:29 Hgb RDW ESR Creatinine Est GFR ( Amer) Est GFR (Non-Af Amer) Glucose Direct Bilirubin C-Reactive Protein 72.7 H Urine Urobilinogen 4.0 H Urine Ascorbic Acid 20 H Discharge <JASWINDER VAZQUEZ - Last Filed: 01/25/17 10:41> <ABHINAV CORREA - Last Filed: 01/25/17 13:12> - Discharge Clinical Impression: Encounter for evaluation of wound Condition: Stable Disposition: OTHER Additional Instructions: Please go directly to Dr. Angeles's office for evaluation of your wound. Micah Attestation: 01/25/17 13:12 I personally performed the services described in the documentation, reviewed and edited the documentation which was dictated to the scribe in my presence, and it accurately records my words and actions. (ABHINAV CORREA) Scribe Documentation - Scribe Written by Micah:: Micah Bone, 01/25/2017 0716 acting as scribe for :: Radha <JASWINDER VAZQUEZ - Last Filed: 01/25/17 10:41>
[2017-01-25 07:19] LABS: ABSOLUTE BASOPHILS # (AUTO) 0.1 10^3/uL (0.0-0.2); ABSOLUTE EOSINOPHILS # (AUTO) 0.2 10^3/uL (0.0-0.6); ABSOLUTE LYMPHOCYTES (AUTO) 2.1 10^3/uL (0.5-4.7); ABSOLUTE MONOCYTES (AUTO) 0.9 10^3/uL (0.1-1.4); ABSOLUTE NEUT (AUTO) 5.3 10^3/uL (1.7-8.2); BASOPHILS % (AUTO) 0.6 % (0-2); EOSINOPHILS % (AUTO) 2.1 % (0-6); HEMATOCRIT 38.9 % (37.9-51.0); HGB HCT DIFFERENCE 0.1; LYMPHOCYTES % (AUTO) 24.6 % (13-45); MEAN CORPUSCULAR HGB CONC 33.6 g/dL (32.0-36.0); MEAN CORPUSCULAR VOLUME 86 fl (80-97); MONOCYTES % (AUTO) 10.3 % (3-13); RED CELL DISTRIBUTION WIDTH 15.3 % (11.5-14.0); SEGMENTED NEUTROPHILS % (AUTO) 62.4 % (42-78); WHITE BLOOD COUNT 8.4 10^3/uL (4.0-10.5)
[2017-01-25 07:35] LABS: ALANINE AMINOTRANSFERASE 47 U/L (21-72); ALBUMIN 3.9 g/dL (3.5-5.0); ALKALINE PHOSPHATASE 105 U/L (38-126); ANION GAP 11 (5-19); ASPARTATE AMINO TRANSFERASE 29 U/L (17-59); BILIRUBIN,DIRECT 0.5 mg/dL (0.0-0.4); BILIRUBIN,TOTAL 0.8 mg/dL (0.2-1.3); BLOOD UREA NITROGEN 12 mg/dL (7-20); CALCIUM 9.6 mg/dL (8.4-10.2); CARBON DIOXIDE 25 mmol/L (22-30); CHLORIDE 104 mmol/L (98-107); CREATININE RESULT 1.51 mg/dL (0.52-1.25); GLUCOSE 117 mg/dL (75-110); SODIUM 139.7 mmol/L (137-145); TOTAL PROTEIN 7.6 g/dL (6.3-8.2)
[2017-01-25 07:52] LABS: PROTHROMBIN TIME 13.1 SEC (11.4-15.4)
--- NOTE | 2017-01-25 08:40 | RADIOLOGY REPORT (SQ) ---
EXAM DESCRIPTION: HIP LEFT AP/LATERAL COMPLETED DATE/TIME: 01/25/2017 7:52 am REASON FOR STUDY: pain, draining, recent replacement COMPARISON: 01/09/2017, 11/05/2016 NUMBER OF VIEWS: Two views. TECHNIQUE: AP pelvis and additional frog-leg view of the left hip. LIMITATIONS: None. FINDINGS: MINERALIZATION: Normal. LEFT HIP: Hip replacement in good alignment. Overlying surgical jeannie. No fracture in the left he mipelvis or along the left proximal femur at the prosthesis site. RIGHT HIP: Old right hip replacement. No malalignment. Benign hyperostosis right greater trochanter PUBIS AND ISCHIUM: No fracture. PELVIS: No acute fracture. Benign sclerosis right sacral ala SACRUM: No acute fracture. Benign sclerosis right sacral ala LOWER LUMBAR SPINE: Lower lumbar fusion with hardware from L3-4 through L5-S1. Some lucency around t he sacral screws, question loosening SOFT TISSUES: Surgical clips post prostatectomy OTHER: No other significant finding. IMPRESSION: Recent left hip replacement. Good alignment at the hardware. Old right hip replacement and lower lumbar fusion TECHNICAL DOCUMENTATION: JOB ID: [id number] [employer]- All Rights Reserved
--- NOTE | 2017-01-25 08:47 | EKG REPORT ---
SEVERITY:- NORMAL ECG - SINUS RHYTHM : Confirmed by: Nazia Pinzon 25-Jan-2017 08:47:06
[2017-01-25 09:51] LABS: APPEARANCE,URINE CLEAR; BILIRUBIN,URINE NEGATIVE (NEGATIVE); GLUCOSE, URINE NEGATIVE (NEGATIVE); KETONES,URINE NEGATIVE (NEGATIVE); LEUKOCYTE ESTERASE,URINE NEGATIVE (NEGATIVE); NITRITE,URINE NEGATIVE (NEGATIVE); PROTEIN,URINE NEGATIVE (NEGATIVE); URINE SPECIFIC GRAVITY 1.012
[2017-01-25 12:03] VITALS: BP 127/74
== END 2017-01-25 12:15 | disposition other institution (70) ==
LOC: ER 06:24
DX: Z47.1 Aftercare following joint replacement surgery (principal); M25.552 Pain in left hip; Z96.642 Presence of left artificial hip joint
CPT/HCPCS: 93005; 99284; 96361; 96374; 96375; 36415; 87040; 87086; 87070; 87205; 82962; 85025; 85652; 85610; 86140; 87077; 80053; 81001; 87186; 83605; 73502; 93010; J2270; J2405; J7030

== ENCOUNTER 2017-02-04 22:09 | Emergency (ER) | payer MEDICARE, MEDICAID ==
[2017-02-05] MEDS ORDERED: MORPHINE SULFATE 10 MG/ML INJ IV ONE (00:11)
[2017-02-05] MEDS ORDERED: ONDANSETRON HCL INJ/PF 4 MG/2 ML SDV IV ONE (00:11)
--- NOTE | 2017-02-05 00:13 | ER Document Report ---
ED Hip Pain/Injury - General Chief Complaint: Hip Pain Stated Complaint: LEFT HIP PAIN Time Seen by Provider: 02/04/17 23:33 Notes: Patient is a 56-year-old male with a history of avascular necrosis of the left hip, status post hip replacement on 01/09/[address] Zelaya, states that he has had progressive pain over the past few days, he has had drainage from the area for the past week and a half, states the drainage is yellowish in color. He denies fever or chills. He denies reinjury. He is taking Percocet 10 mg 4 times daily and Lyrica and states his pain is still not under control. He was supposed to be seen on 02/08 for follow-up but states the progressive pain has become constant and he could not stand it anymore. TRAVEL OUTSIDE OF THE [place] IN LAST 30 DAYS: No - Related Data Allergies/Adverse Reactions: No Known Allergies Allergy (Verified 02/04/17 22:11) Past Medical History - General Information source: Patient - Social History Smoking Status: Never Smoker Frequency of alcohol use: None Drug Abuse: None Lives with: Family Family History: Reviewed & Not Pertinent - Past Medical History Cardiac Medical History: Reports: Hx Hypercholesterolemia, Hx Hypertension Denies: Hx Atrial Fibrillation, Hx Congestive Heart Failure, Hx Coronary Artery Disease, Hx Heart Attack, Hx Peripheral Vascular Disease, Hx Pulmonary Embolism, Hx Heart Murmur Pulmonary Medical History: Reports: Hx Sleep Apnea - has a machine Denies: Hx Asthma, Hx Bronchitis, Hx COPD, Hx Pneumonia, Hx Respiratory Failure, Hx Tuberculosis Neurological Medical History: Denies: Hx Cerebrovascular Accident, Hx Seizures Endocrine Medical History: Reports: Hx Diabetes Mellitus Type 2. Denies: Hx Diabetes Mellitus Type 1 Renal/ Medical History: Denies: Hx Benign Prostatic Hyperplasia, Hx End Stage Renal Disease, Hx Kidney Stones, Hx Peritoneal Dialysis Malignancy Medical History: Denies Hx Lung Cancer GI Medical History: Denies: Hx Crohn's Disease, Hx Gastroesophageal Reflux Disease, Hx Hiatal Hernia, Hx Irritable Bowel, Hx Liver Failure, Hx Pancreatitis , Hx Ulcer Musculoskeltal Medical History: Reports Hx Arthritis - hip, Denies Hx Fibromyalgia, Denies Hx Multiple Sclerosis, Denies Hx Muscular Dystrophy Psychiatric Medical History: Denies: Hx Dementia, Hx Depression Traumatic Medical History: Denies: Hx Fractures Past Surgical History: Reports: Hx Cholecystectomy, Hx Orthopedic Surgery - 3 "back" surgeries, left hip surgery. Denies: Hx Appendectomy, Hx Bowel Surgery, Hx Colostomy, Hx Coronary Artery Bypass Graft, Hx Gastric Bypass Surgery, Hx Herniorrhaphy, Hx Pacemaker, Hx Tonsillectomy - Immunizations Hx Diphtheria, Pertussis, Tetanus Vaccination: No Review of Systems - Review of Systems Constitutional: No symptoms reported EENT: No symptoms reported Cardiovascular: No symptoms reported Respiratory: No symptoms reported Gastrointestinal: No symptoms reported Genitourinary: No symptoms reported Male Genitourinary: No symptoms reported Musculoskeletal: See HPI Skin: No symptoms reported Hematologic/Lymphatic: No symptoms reported Neurological/Psychological: No symptoms reported Physical Exam - Vital signs Vitals: Temp Pulse Resp BP Pulse Ox 98.3 F 98 20 124/63 96 02/04/17 22:38 02/04/17 22:38 02/04/17 22:38 02/04/17 22:38 02/04/17 22:38 Interpretation: Normal - General General appearance: Alert, Other - Patient mildly uncomfortable, shifting on the bed, does not appear to be in any severe distress In distress: None - HEENT Head: Normocephalic, Atraumatic Eyes: Normal Pupils: PERRL - Respiratory Respiratory status: No respiratory distress Chest status: Nontender Breath sounds: Normal. No: Decreased air movement, Wheezing Chest palpation: Normal - Cardiovascular Rhythm: Regular. No: Tachycardia Heart sounds: Normal auscultation, S1 appreciated, S2 appreciated Murmur: No - Abdominal Inspection: Normal Distension: No distension Bowel sounds: Normal Tenderness: Nontender. No: Tender, Guarding - Back Back: Normal, Nontender. No: Tender - Extremities General upper extremity: Normal inspection, Nontender, Normal color, Normal ROM , Normal temperature General lower extremity: Other - Left femoral head/hip area with a wound with formerly removed jeannie, there is an area in the middle with mild drainage, drainage is yellowish in appearance, no foul smell, no surrounding erythema or heat, no induration, range of motion still intact, normal knee, ankle, distal neurovascular exam. - Neurological Neuro grossly intact: Yes Cognition: Normal Orientation: AAOx4 [place] Coma Scale Eye Opening: Spontaneous [place] Coma Scale Verbal: Oriented [place] Coma Scale Motor: Obeys Commands [place] Coma Scale Total: 15 Speech: Normal Motor strength normal: LUE, RUE, LLE, RLE Sensory: Normal - Psychological Associated symptoms: Normal affect, Normal mood - Skin Skin Temperature: Warm Skin Moisture: Dry Skin Color: Normal Course - Re-evaluation Re-evalutation: Patient is much more comfortable after medications, still having mild pain. He still can ambulate. No fever, unremarkable vital signs. CBC unremarkable, ESR and CRP are minimally elevated, significantly lower than previously. Examination shows yellowish drainage but does not show surrounding erythema, abnormal heat, severe tenderness, induration. Area does not smell foul. X-ray was performed before I evaluated the patient. No significant change or finding. Called and spoke with Dr. Guerra, orthopedics personal financial representative, discussed patient. He does not recommend antibiotics at this time. He recommends patient be given OxyContin for breakthrough pain, close follow-up instructions, return precautions. This was discussed with patient in detail. Patient states understanding and agreement. - Vital Signs Vital signs: Temp Pulse Resp BP Pulse Ox 98.3 F 75 18 130/74 H 97 02/04/17 22:38 02/05/17 02:36 02/05/17 02:36 02/05/17 02:36 02/05/17 02:36 - Laboratory Result Diagrams: 02/05/17 00:52 02/05/17 00:52 Laboratory results interpreted by me: 02/05/17 02/05/17 00:52 00:52 RBC 4.24 L Hgb 11.9 L Hct 36.4 L RDW 15.7 H ESR 46 H Creatinine 1.47 H Est GFR (Non-Af Amer) 50 L C-Reactive Protein 24.4 H Discharge - Discharge Clinical Impression: Avascular necrosis of bone of left hip, Post-op pain Condition: Stable Disposition: HOME, SELF-CARE Additional Instructions: Your evaluation including labs and x-ray do not indicate an infection or any obvious abnormality. I spoke to Dr. Guerra, orthopedics personal financial representative for Dr. Angeles. Recommendation is for you to be given OxyContin for breakthrough pain if needed in addition to your current pain medication. I recommend you take an [id number] stool softener to avoid constipation. Please follow-up as planned with Dr. Angeles for this revision. Return if you worsen in anyway including fever, redness or spreading redness of the area, or any other concerning symptoms. Prescriptions: Oxycodone HCl [Oxycontin Ir 5 Mg Tablet] 1 - 2 mg PO Q4H PRN #15 tablet PRN Reason: For Pain Referrals: ERIN ANGELES MD [Primary Care Provider] - Follow up as needed
--- NOTE | 2017-02-05 00:20 | RADIOLOGY REPORT (SQ) ---
EXAM DESCRIPTION: HIP LEFT AP/LATERAL CLINICAL HISTORY: 56 years, Male, pain COMPARISON: 01/25/2017. LIMITATIONS: None. FINDINGS: Bilateral total hip arthroplasty, no evidence of metal fracture or loosening, lower pelvic clips, L3-S1 hardware fusion. IMPRESSION: No acute findings. 2011 [facility] [employer]- All Rights Reserved
[2017-02-05 01:16] LABS: ABSOLUTE EOSINOPHILS # (AUTO) 0.2 10^3/uL (0.0-0.6); ABSOLUTE LYMPHOCYTES (AUTO) 2.7 10^3/uL (0.5-4.7); ABSOLUTE MONOCYTES (AUTO) 0.8 10^3/uL (0.1-1.4); ABSOLUTE NEUT (AUTO) 4.2 10^3/uL (1.7-8.2); BASOPHILS % (AUTO) 0.5 % (0-2); EOSINOPHILS % (AUTO) 2.3 % (0-6); HEMATOCRIT 36.4 % (37.9-51.0); HEMOGLOBIN 11.9 g/dL (13.5-17.0); HGB HCT DIFFERENCE -0.7; LYMPHOCYTES % (AUTO) 34.1 % (13-45); MEAN CORPUSCULAR HEMOGLOBIN 28.1 pg (27.0-33.4); MEAN CORPUSCULAR HGB CONC 32.7 g/dL (32.0-36.0); MEAN CORPUSCULAR VOLUME 86 fl (80-97); MONOCYTES % (AUTO) 9.8 % (3-13); RED BLOOD COUNT 4.24 10^6/uL (4.35-5.55); RED CELL DISTRIBUTION WIDTH 15.7 % (11.5-14.0); SEGMENTED NEUTROPHILS % (AUTO) 53.3 % (42-78); WHITE BLOOD COUNT 7.8 10^3/uL (4.0-10.5)
[2017-02-05 01:25] LABS: ANION GAP 10 (5-19); BLOOD UREA NITROGEN 13 mg/dL (7-20); C-REACTIVE PROTEIN 24.4 mg/L (<10.0); CALCIUM 9.5 mg/dL (8.4-10.2); CARBON DIOXIDE 28 mmol/L (22-30); CHLORIDE 102 mmol/L (98-107); CREATININE RESULT 1.47 mg/dL (0.52-1.25); GLUCOSE 109 mg/dL (75-110); POTASSIUM 4.4 mmol/L (3.6-5.0); SODIUM 140.2 mmol/L (137-145)
[2017-02-05 01:56] LABS: ERYTHROCYTE SEDIMENTATION RATE 46 mm/hr (0-20)
[2017-02-05] MEDS ORDERED: HYDROMORPHONE HCL INJ/PF 2 MG/ML AMPULE IM ONE (02:24)
[2017-02-05 02:39] VITALS: BP 130/74
== END 2017-02-05 02:38 | disposition home or self-care (01) ==
LOC: ER 22:09
DX: G89.18 Other acute postprocedural pain (principal); M25.552 Pain in left hip; M87.9 Osteonecrosis, unspecified; Z96.642 Presence of left artificial hip joint; I10 Essential (primary) hypertension; E11.9 Type 2 diabetes mellitus without complications
CPT/HCPCS: 99283; 96372; 96374; 96375; 36415; 85025; 85652; 86140; 80048; 73502; J2270; J1170; J2405

== ENCOUNTER 2017-02-06 22:59 | Inpatient (IN) | payer MEDICARE, MEDICAID ==
[2017-02-06] MEDS ORDERED: HYDROMORPHONE HCL INJ/PF 2 MG/ML AMPULE IV ONE (23:19)
--- NOTE | 2017-02-06 23:22 | ER Document Report ---
ED General - General Chief Complaint: Hip Pain Stated Complaint: LEFT HIP PAIN Time Seen by Provider: 02/06/17 23:11 Notes: This is a 56-year-old male who was just seen here 24 hours ago for the same complaint. Patient has a history of avascular necrosis of left hip. He had surgery in his left hip in December. Since then he said gradual worsening pain but this week his pain has been severe. He saw Dr. Santa and Dr. Angeles is arranged for a hip revision to be performed on Monday. He was seen here last night the pain was severe. His CRP was improving. X-ray did not show anything concerning. Case was discussed with Dr. Portillo who requested that we give the patient oxycodone to take as for breakthrough pain in conjunction with his Percocet. Patient was discharged home. Patient says pain is continued to worsen and now he cannot bear weight even with crutches or cane. Patient therefore is come back to the ER. He denies any fevers. He denies any increase in drainage. He still has a very small amount of yellow tinged drainage from the hip. He denies any redness or swelling. He just says that the pain continues to worsen. TRAVEL OUTSIDE OF THE [place] IN LAST 30 DAYS: No - Related Data Allergies/Adverse Reactions: No Known Allergies Allergy (Verified 02/04/17 22:11) Past Medical History - Social History Smoking Status: Unknown if Ever Smoked Frequency of alcohol use: None Drug Abuse: None Family History: Reviewed & Not Pertinent - Past Medical History Cardiac Medical History: Reports: Hx Hypercholesterolemia, Hx Hypertension Denies: Hx Atrial Fibrillation, Hx Congestive Heart Failure, Hx Coronary Artery Disease, Hx Heart Attack, Hx Peripheral Vascular Disease, Hx Pulmonary Embolism, Hx Heart Murmur Pulmonary Medical History: Reports: Hx Sleep Apnea - has a machine Denies: Hx Asthma, Hx Bronchitis, Hx COPD, Hx Pneumonia, Hx Respiratory Failure, Hx Tuberculosis Neurological Medical History: Denies: Hx Cerebrovascular Accident, Hx Seizures Endocrine Medical History: Reports: Hx Diabetes Mellitus Type 2. Denies: Hx Diabetes Mellitus Type 1 Renal/ Medical History: Denies: Hx Benign Prostatic Hyperplasia, Hx End Stage Renal Disease, Hx Kidney Stones, Hx Peritoneal Dialysis Malignancy Medical History: Denies Hx Lung Cancer GI Medical History: Denies: Hx Crohn's Disease, Hx Gastroesophageal Reflux Disease, Hx Hiatal Hernia, Hx Irritable Bowel, Hx Liver Failure, Hx Pancreatitis , Hx Ulcer Musculoskeltal Medical History: Reports Hx Arthritis - hip, Denies Hx Fibromyalgia, Denies Hx Multiple Sclerosis, Denies Hx Muscular Dystrophy Psychiatric Medical History: Denies: Hx Dementia, Hx Depression Traumatic Medical History: Denies: Hx Fractures Past Surgical History: Reports: Hx Cholecystectomy, Hx Orthopedic Surgery - 3 "back" surgeries, left hip surgery. Denies: Hx Appendectomy, Hx Bowel Surgery, Hx Colostomy, Hx Coronary Artery Bypass Graft, Hx Gastric Bypass Surgery, Hx Herniorrhaphy, Hx Pacemaker, Hx Tonsillectomy - Immunizations Hx Diphtheria, Pertussis, Tetanus Vaccination: No Review of Systems - Review of Systems Notes: My Normal Review Basic REVIEW OF SYSTEMS: CONSTITUTIONAL : Denies fever, chills, or sweats. Denies recent illness. EENT: Denies eye, ear, throat, or mouth pain or symptoms. Denies nasal or sinus congestion. CARDIOVASCULAR: Denies chest pain. RESPIRATORY: Denies cough, cold, or chest congestion. Denies shortness of breath, difficulty breathing, or wheezing. GASTROINTESTINAL: Denies abdominal pain. Denies nausea, vomiting, or diarrhea. Denies constipation. Last BM: MUSCULOSKELETAL: Left hip SKIN: Denies rash or skin lesions. HEMATOLOGIC : Denies easy bruising or bleeding. NEUROLOGICAL: Denies sensory or motor loss. ALL OTHER SYSTEMS REVIEWED AND NEGATIVE. Physical Exam - Notes Notes: General Appearance: Well nourished, alert, cooperative, no acute distress, moderate obvious discomfort. Vitals: reviewed, See vital signs table. Eyes: PERRL, EOMI, Conjuctiva clear Lungs: No wheezing, No rales, No rhonci, No accessory muscle use, good air exchange bilaterally. Heart: Normal rate, Regular rythm, No murmur, no rub Abdomen: Normal BS, soft, No rigidity, No abdominal tenderness, No guarding, no rebound, no abdominal masses, no organomegaly Extremities: strength 5/5 in all extremities, good pulses in all extremities, patient has pain to palpation over the area of the left hip. Surgical scar is intact. He does have 1 more area over the surgical scar with there is granulomatous change with just a very small amount of yellow tinged fluid consistent with serosanguineous type of drainage. There is no redness or warmth or increased swelling to the area. Is good distal sensation to his leg. Good distal pulses. Skin: warm, dry, appropriate color, no rash Neuro: speech clear, oriented x 3, normal affect, responds appropriately to questions. Course - Re-evaluation Re-evalutation: 02/07/17 03:[address] Angeles. I discussed the patient's continued pain and rising CRP with him. He does not recommend antibiotics at this time and says he will admit the patient and reevaluate in the am. Patient is agreeable with plan. - Laboratory Result Diagrams: 02/07/17 00:41 02/07/17 00:41 Laboratory results interpreted by me: 02/07/17 02/07/17 00:41 00:41 RBC 4.00 L Hgb 11.2 L Hct 33.8 L RDW 15.5 H ESR 58 H Creatinine 1.26 H Est GFR (Non-Af Amer) 59 L C-Reactive Protein 146.5 H Discharge - Discharge Clinical Impression: Hip pain, left Condition: Good Disposition: ADMITTED OBSERVATION Admitting Provider: Dr. Angeles Unit Admitted: Medical Floor
[2017-02-07 01:03] LABS: ABSOLUTE EOSINOPHILS # (AUTO) 0.2 10^3/uL (0.0-0.6); ABSOLUTE LYMPHOCYTES (AUTO) 2.4 10^3/uL (0.5-4.7); ABSOLUTE NEUT (AUTO) 5.8 10^3/uL (1.7-8.2); BASOPHILS % (AUTO) 0.5 % (0-2); EOSINOPHILS % (AUTO) 1.6 % (0-6); HEMATOCRIT 33.8 % (37.9-51.0); HEMOGLOBIN 11.2 g/dL (13.5-17.0); LYMPHOCYTES % (AUTO) 25.5 % (13-45); MEAN CORPUSCULAR HEMOGLOBIN 27.9 pg (27.0-33.4); MEAN CORPUSCULAR VOLUME 85 fl (80-97); MONOCYTES % (AUTO) 10.7 % (3-13); PLATELET COUNT 350 10^3/uL (150-450); RED CELL DISTRIBUTION WIDTH 15.5 % (11.5-14.0); SEGMENTED NEUTROPHILS % (AUTO) 61.7 % (42-78); TOTAL CELLS COUNTED % (AUTO) 100 %; WHITE BLOOD COUNT 9.4 10^3/uL (4.0-10.5)
[2017-02-07 01:15] LABS: ANION GAP 9 (5-19); BLOOD UREA NITROGEN 12 mg/dL (7-20); CALCIUM 9.3 mg/dL (8.4-10.2); CARBON DIOXIDE 28 mmol/L (22-30); CHLORIDE 102 mmol/L (98-107); GLUCOSE 104 mg/dL (75-110); POTASSIUM 4.4 mmol/L (3.6-5.0); SODIUM 138.9 mmol/L (137-145)
[2017-02-07 01:45] LABS: C-REACTIVE PROTEIN 146.5 mg/L (<10.0)
[2017-02-07 01:48] LABS: ERYTHROCYTE SEDIMENTATION RATE 58 mm/hr (0-20)
--- NOTE | 2017-02-07 04:19 | RADIOLOGY REPORT (SQ) ---
EXAM DESCRIPTION: CT of the left hip without contrast CLINICAL HISTORY: left hip pain. focus scan to left hip COMPARISON: None Available. TECHNIQUE: CT of the left without IV contrast. FINDINGS: Left hip: Postoperative naye and screw fixation of L3-S1 with posterior laminectomies at L4 and L5. Left total hip arthroplasty without evidence of hardware abnormality. No dislocation identified. No fracture visualized. Postoperative change of the prostate gland. Scattered diverticula of the visualized colon. DLP: 1436.91 mGy-cm IMPRESSION: 1. No acute abnormality of the left hip identified. No definite abnormalities of the left hip arthroplasty. This exam was performed according to our departmental dose-optimization program, which includes automated exposure control, adjustment of the mA and/or kV according to patient size and/or use of iterative reconstruction technique.
[2017-02-07] MEDS ORDERED: HYDROMORPHONE HCL INJ/PF 2 MG/ML AMPULE ONE (07:06)
--- NOTE | 2017-02-07 09:16 | PDOC H&P ---
History of Present Illness Admission Date/PCP: 02/07/17 03:30 History of Present Illness: JOHNSON TAMEZ is a 56 year old male status post left hip arthroplasty for avascular necrosis on 01/09/2017. Patient presented to emergency room on each of the last 2 nights with increasing pain in the hip and persistent drainage. CRP has increased dramatically from 24 2/100. Past Medical History Cardiac Medical History: Reports: Hyperlipidema, Hypertension Denies: Atrial Fibrillation, Congestive Heart Failure, Coronary Artery Disease, Myocardial Infarction, Peripheral Vascular Disease, Pulmonary Embolism , Heart Murmur Pulmonary Medical History: Reports: Sleep Apnea - has a machine Denies: Asthma, Bronchitis, Chronic Obstructive Pulmonary Disease (COPD), Pneumonia, Respiratory Failure, Tuberculosis Neurological Medical History: Denies: Seizures Endocrine Medical History: Reports: Diabetes Mellitus Type 2 Denies: Diabetes Mellitus Type 1 Renal/ Medical History: Denies: End Stage Renal Disease Malignancy Medical History: Denies: Lung Cancer GI Medical History: Denies: Crohn's Disease, Gastroesophageal Reflux Disease, Hiatal Hernia Musculoskeltal Medical History: Reports: Arthritis - hip Denies: Fibromyalgia Psychiatric Medical History: Denies: Dementia, Depression Hematology: Denies: Anemia Past Surgical History Past Surgical History: Reports: Cholecystectomy, Orthopedic Surgery - 3 "back" surgeries, right hip replacement, left hip replacement January 09 Denies: Appendectomy, Colostomy, Coronary Artery Bypass Graft, Gastric Bypass Surgery, Herniorrhaphy, Pacemaker, Tonsillectomy Social History Smoking Status: Current Some Day Smoker Cigarettes Packs Per Day: 0 Cigars Per Day: 0 Pipes Per Day: 0 Last Time Smoked: 02/05/17 Frequency of Alcohol Use: Occasional Hx Recreational Drug Use: No Drugs: None Hx Prescription Drug Abuse: No Family History Family History: Reviewed & Not Pertinent Parental Family History Reviewed: No Children Family History Reviewed: No Sibling(s) Family History Reviewed.: No Medication/Allergy Allergies/Adverse Reactions: No Known Allergies Allergy (Verified 02/04/17 22:11) Review of Systems All systems: as per PMH Physical Exam Vital Signs: Temp Pulse Resp BP Pulse Ox 36.3 C 63 20 118/53 L 99 02/07/17 08:00 02/07/17 08:00 02/07/17 08:00 02/07/17 08:00 02/07/17 08:00 Intake & Output 02/06/17 02/07/17 02/08/17 06:59 06:59 06:59 Weight 110.2 kg General appearance: PRESENT: no acute distress Head exam: PRESENT: normocephalic Respiratory exam: PRESENT: unlabored Cardiovascular exam: PRESENT: RRR Pulses: PRESENT: +1 pedal pulses bilateral GI/Abdominal exam: PRESENT: soft Rectal exam: PRESENT: deferred Musculoskeletal exam: PRESENT: other - Leg lengths are equal. Distal neurovascular examination is intact. Serosanguineous drainage from the inferior aspect of the wound. Neurological exam: PRESENT: alert, awake, oriented to person, oriented to place , oriented to time, oriented to situation. ABSENT: motor sensory deficit Psychiatric exam: PRESENT: appropriate affect, normal mood. ABSENT: homicidal ideation, suicidal ideation Skin exam: PRESENT: dry, intact, warm. ABSENT: cyanosis, rash Results Impressions: Lower Extremity CT 02/06/17 23:18 IMPRESSION: 1. No acute abnormality of the left hip identified. No definite abnormalities of the left hip arthroplasty. This exam was performed according to our departmental dose-optimization program, which includes automated exposure control, adjustment of the mA and/or kV according to patient size and/or use of iterative reconstruction technique. Status: Imported from PACS Assessment & Plan - Diagnosis (1) History of left hip replacement Is this a current diagnosis for this admission?: Yes Plan: 56-year-old black male status post left hip arthroplasty now with increasing pain, increasing CRP, and wound drainage consistent with a surgical site infection (2) Post-op pain Is this a current diagnosis for this admission?: Yes - Time Time Spent: 30 to 50 Minutes Anticipated discharge: Home with Homehealth Within: Other - Plan Summary Plan Summary: Patient was scheduled for an I&D of the left hip wound on February 08, 2017. Patient will be admitted at this point for pain control and proceed with the idea of the left hip tomorrow.
[2017-02-07] MEDS ORDERED: OXYCODONE HCL IR 5 MG TABLET PO PRN ×2 (09:39→11:30)
[2017-02-07] MEDS ORDERED: ONDANSETRON 4 MG TAB.RAPDIS SL PRN (09:39)
[2017-02-07] MEDS: MORPHINE SULFATE 10 MG/ML INJ IV PRN ×3 (11:24→19:59)
[2017-02-07] MEDS: PREGABALIN 75 MG CAPSULE PO SCH ×2 (13:35→21:25)
[2017-02-07] MEDS ORDERED: METOPROLOL TARTRATE 50 MG TABLET PO ONE (14:00)
[2017-02-07] MEDS ORDERED: LISINOPRIL 10 MG TABLET PO ONE (14:00)
[2017-02-07] MEDS: OXYCODONE HCL IR 5 MG TABLET PO PRN (14:37)
[2017-02-07] MEDS: FLUTICASONE NASAL SPRAY 50 MCG/SPRY 120 SPRAY/16 GM NASL SCH (21:25)
[2017-02-07] MEDS: METOPROLOL TARTRATE 50 MG TABLET PO SCH (21:25)
[2017-02-07] MEDS: CYCLOBENZAPRINE HCL 10 MG TABLET PO PRN (21:26)
[2017-02-07] MEDS ORDERED: METOPROLOL TARTRATE 50 MG TABLET PO SCH (22:00)
[2017-02-08] MEDS ORDERED: RINGERS SOLUTION,LACTATED 1,000 ML IV PRN
[2017-02-08] MEDS: MORPHINE SULFATE 10 MG/ML INJ IV PRN ×2 (00:26→07:42)
[2017-02-08] MEDS: PREGABALIN 75 MG CAPSULE PO SCH ×4 (00:27→23:43)
[2017-02-08] MEDS ORDERED: FENTANYL CITRATE INJ/PF 100 MCG/2 ML AMPUL ONE ×2 (08:12→11:10)
[2017-02-08] MEDS ORDERED: MIDAZOLAM 2 MG/2 ML INJ ONE (08:12)
[2017-02-08] MEDS ORDERED: ACETAMINOPHEN 100 ML IV ONE ×2 (08:13→16:20)
[2017-02-08] MEDS ORDERED: PROPOFOL INJ 200 MG/20 ML VIAL IV ONE (08:13)
[2017-02-08] MEDS ORDERED: EPHEDRINE SULFATE INJ 50 MG/1 ML AMPULE ONE (08:13)
[2017-02-08] MEDS ORDERED: TRANEXAMIC ACID INJ/PF 1,000 MG/10 ML SDV IV ONE ×3 (08:35→12:30)
[2017-02-08] MEDS ORDERED: THROMBIN (BOVINE) TOPICAL 20000 UNIT VIAL ONE (08:40)
[2017-02-08] MEDS ORDERED: BACITRACIN INJ 50,000 UNIT VIAL ONE ×2 (08:40→10:29)
[2017-02-08] MEDS ORDERED: THROMBIN (BOVINE) 5000 UNIT EPITAXIS KIT ONE (08:40)
[2017-02-08] MEDS ORDERED: BUPIVACAINE INJ/PF LIPOSOME/PF 266 MG/20 ML SDV ONE (08:41)
[2017-02-08] MEDS ORDERED: DIPHENHYDRAMINE HCL 50 MG/ML VIAL IV PRN ×2 (09:50→10:20)
[2017-02-08] MEDS ORDERED: FENTANYL CITRATE INJ/PF 100 MCG/2 ML AMPUL IV PRN ×2 (09:50)
[2017-02-08] MEDS ORDERED: OXYCODONE-ACETAMINOPHEN 5-325 MG TABLET PO PRN ×2 (09:50)
[2017-02-08] MEDS ORDERED: MORPHINE SULFATE 10 MG/ML INJ IV PRN ×3 (09:50→10:20)
[2017-02-08] MEDS ORDERED: PROMETHAZINE HCL INJ 25 MG/1 ML VIAL IV PRN ×2 (09:50)
[2017-02-08] MEDS ORDERED: MEPERIDINE HCL/PF INJ 25 MG/1 ML DISP.SYRIN IV PRN (09:50)
[2017-02-08] MEDS ORDERED: (PENDING PHARMACY ID) (Oxycodone Hcl/Acetaminophen [Percocet 10-325 Mg Tablet] 1 TAB) PO PRN (10:19)
[2017-02-08] MEDS ORDERED: ONDANSETRON 4 MG TAB.RAPDIS PO PRN (10:20)
[2017-02-08] MEDS ORDERED: ACETAMINOPHEN 325 MG TABLET PO PRN (10:20)
[2017-02-08] MEDS ORDERED: ONDANSETRON HCL INJ/PF 4 MG/2 ML SDV IV PRN (10:20)
[2017-02-08] MEDS ORDERED: MORPHINE SULFATE 10 MG/ML INJ IM PRN (10:20)
[2017-02-08] MEDS ORDERED: MAG HYDROX/AL HYDROX/SIMETH SUSP 30 ML UDCUP PO PRN (10:20)
[2017-02-08] MEDS ORDERED: OXYCODONE HCL IR 5 MG TABLET PO PRN (10:20)
[2017-02-08] MEDS ORDERED: POLYMYXIN B SULFATE INJ 500000 UNIT VIAL ONE (10:29)
--- NOTE | 2017-02-08 10:29 | Operative Report ---
Operative Report DATE OF SURGERY: 02/08/17 PREOPERATIVE DIAGNOSIS: Periprosthetic infection left hip OPERATION: Irrigation debridement, head liner exchange SURGEON: ERIN KNOTT 1ST ROCK PICKER: MACK MUKHERJEE TISSUE REMOVED OR ALTERED: Cultures 2 to microbiology ESTIMATED BLOOD LOSS: 100 PROCEDURE: With the patient in a right lateral decubitus position on the operative table of the left lower extremity hindquarter prepped and draped in a sterile fashion. A curvilinear incision made over the greater trochanter in line with the previous surgical approach. The incision extends below the iliotibial band. There is serosanguineous fluid here which is cultured 2. The hip is dislocated. The femoral head disimpacted. The femur was retracted anteriorly. The underlying acetabular liner was removed using an osteotome. The cup tested for stability using a curved clamp was felt to be solid. The wound was then irrigated with 6 L normal saline containing bacitracin. It is irrigated with Betadine. Followed by further 3 L of normal saline containing bacitracin. A 36 mm flat cross-link polyethylene liner was impacted as well as a 36 mm -5 chrome cobalt head. The hip was reduced. Is closed in layers using interrupted PDS. A 10 Chetan-Sanchez drain is placed. Skin edges are debrided back away from the previous incision to provide healthy tissue for healing. A sterile compressive dressing was applied and the patient's return to the PACU in satisfactory condition.
[2017-02-08] MEDS: FENTANYL CITRATE INJ/PF 100 MCG/2 ML AMPUL IV PRN ×2 (11:10→11:15)
[2017-02-08] MEDS: MORPHINE SULFATE 10 MG/ML INJ ONE ×2 (11:32→11:55)
[2017-02-08] MEDS ORDERED: RIFAMPIN 300 MG CAPSULE PO ONE (12:00)
--- NOTE | 2017-02-08 12:07 | RADIOLOGY REPORT (SQ) ---
EXAM DESCRIPTION: PELVIS AP COMPLETED DATE/TIME: 02/08/2017 11:42 am REASON FOR STUDY: Post Op Long Cassette in PACU COMPARISON: 02/04/2017 NUMBER OF VIEWS: Choose 2 TECHNIQUE: AP Pelvis with AP view of the left femur. LIMITATIONS: None. FINDINGS: MINERALIZATION: Normal. HIPS: Status post bilateral total hip replacement. Surgical drain and skin jeannie are present on th e left. No acute fracture or dislocation. No worrisome bone lesions. PELVIS AND SACRUM: No acute fracture or dislocation. No worrisome bone lesions. PUBIS AND ISCHIUM: No acute fracture. LOWER LUMBAR SPINE: Status post posterior fusion with naye and screw device. SOFT TISSUES: Multiple surgical clips in the lower abdomen and pelvis. OTHER: No other significant finding. IMPRESSION: Postoperative changes otherwise negative pelvis. TECHNICAL DOCUMENTATION: JOB ID: [id number] [employer]- All Rights Reserved
[2017-02-08] MEDS: OXYCODONE HCL IR 5 MG TABLET PO PRN (13:57)
[2017-02-08] MEDS: LISINOPRIL 10 MG TABLET PO SCH (13:58)
[2017-02-08] MEDS: METOPROLOL TARTRATE 50 MG TABLET PO SCH ×2 (14:00→23:44)
[2017-02-08] MEDS ORDERED: LIDOCAINE 2% INJ-PF (20 MG/ML) 2 ML AMPUL ONE (14:36)
[2017-02-08] MEDS ORDERED: SUCCINYLCHOLINE CHLORIDE INJ 200 MG/10 ML VIAL ONE (14:36)
[2017-02-08] MEDS ORDERED: GLYCOPYRROLATE INJ 0.4 MG/2 ML VIAL ONE (14:36)
[2017-02-08] MEDS ORDERED: ONDANSETRON HCL INJ/PF 4 MG/2 ML SDV ONE (14:36)
[2017-02-08] MEDS ORDERED: DEXAMETHASONE SOD PHOSPHATE INJ 4 MG/1 ML VIAL ONE (14:36)
[2017-02-08] MEDS ORDERED: NEOSTIGMINE METHYLSULFATE 10 MG/10 ML VIAL ONE (14:36)
[2017-02-08] MEDS ORDERED: KETOROLAC TROMETHAMINE 60 MG/2 ML SDV ONE (14:36)
[2017-02-08] MEDS: HYDROMORPHONE HCL INJ/PF 2 MG/ML AMPULE IV PRN ×2 (14:51→23:51)
[2017-02-08] MEDS: FLUTICASONE NASAL SPRAY 50 MCG/SPRY 120 SPRAY/16 GM NASL SCH ×2 (15:26→23:48)
[2017-02-08] MEDS: VANCOMYCIN HCL 1,250 MG in DEXTROSE 5%-WATER 250 ML IV SCH (16:43)
[2017-02-08] MEDS: RIFAMPIN 300 MG CAPSULE PO SCH (19:01)
[2017-02-08] MEDS: SENNOSIDES/DOCUSATE 8.6-50 MG 1 EACH TABLET PO SCH (19:02)
[2017-02-08] MEDS ORDERED: RIVAROXABAN 10 MG TABLET PO SCH (22:00)
[2017-02-08] MEDS ORDERED: VANCOMYCIN HCL 1,000 MG in DEXTROSE 5%-WATER 250 ML IV ONE (22:20)
[2017-02-08] MEDS: OXYCODONE HCL SR 10 MG TABLET PO SCH (23:44)
[2017-02-09] MEDS: VANCOMYCIN HCL 1,250 MG in DEXTROSE 5%-WATER 250 ML IV SCH ×2 (02:25→15:35)
[2017-02-09 05:31] LABS: ANION GAP 7 (5-19); BLOOD UREA NITROGEN 12 mg/dL (7-20); CALCIUM 9.1 mg/dL (8.4-10.2); CARBON DIOXIDE 30 mmol/L (22-30); CHLORIDE 98 mmol/L (98-107); GLUCOSE 117 mg/dL (75-110); POTASSIUM 4.8 mmol/L (3.6-5.0); SODIUM 135.2 mmol/L (137-145)
[2017-02-09 06:27] LABS: HEMATOCRIT 23.5 % (37.9-51.0); MEAN CORPUSCULAR HGB CONC 33.3 g/dL (32.0-36.0); MEAN CORPUSCULAR VOLUME 84 fl (80-97); PLATELET COUNT 395 10^3/uL (150-450); RED BLOOD COUNT 2.79 10^6/uL (4.35-5.55); RED CELL DISTRIBUTION WIDTH 15.5 % (11.5-14.0); WHITE BLOOD COUNT 12.4 10^3/uL (4.0-10.5)
--- NOTE | 2017-02-09 06:31 | PDOC PROGRESS REPORT ---
Subjective Progress Note for:: 02/09/17 Reason For Visit: DRAINAGE,LEFT HIP WOUND 56-year-old black male status post left hip arthroplasty 01/09/2017 for avascular necrosis now with postoperative wound drainage. Patient underwent irrigation debridement yesterday with head and liner exchange. Physical Exam Vital Signs: Temp Pulse Resp BP Pulse Ox 36.5 C 95 20 100/82 94 02/09/17 00:18 02/09/17 00:18 02/09/17 00:18 02/09/17 00:18 02/09/17 00:18 Intake & Output 02/07/17 02/08/17 02/09/17 06:59 06:59 06:59 Intake Total 2450 2860 Output Total 1590 2295 Balance 860 565 Weight 110 kg General appearance: PRESENT: mild distress Head exam: PRESENT: normocephalic Respiratory exam: PRESENT: unlabored Cardiovascular exam: PRESENT: RRR Pulses: PRESENT: +1 pedal pulses bilateral Vascular exam: PRESENT: normal capillary refill GI/Abdominal exam: PRESENT: soft Rectal exam: PRESENT: deferred Extremities exam: PRESENT: other - Left hip dressing has been reinforced. PICC line continues to be productive for approximately 30 cc per shift. Neurological exam: PRESENT: alert, awake, oriented to person, oriented to place , oriented to time, oriented to situation. ABSENT: motor sensory deficit Psychiatric exam: PRESENT: appropriate affect, normal mood. ABSENT: homicidal ideation, suicidal ideation Skin exam: PRESENT: dry, intact, warm. ABSENT: cyanosis, rash Results Laboratory Results: 02/09/17 05:02 02/09/17 02/09/17 05:02 05:02 WBC Cancelled RBC Cancelled Hgb Cancelled Hct Cancelled MCV Cancelled MCH Cancelled MCHC Cancelled RDW Cancelled Plt Count Cancelled Sodium 135.2 L Potassium 4.8 Chloride 98 Carbon Dioxide 30 Anion Gap 7 BUN 12 Creatinine 1.32 H Est GFR ( Amer) > 60 Est GFR (Non-Af Amer) 56 L Glucose 117 H Calcium 9.1 Impressions: Lower Extremity CT 02/06/17 23:18 IMPRESSION: 1. No acute abnormality of the left hip identified. No definite abnormalities of the left hip arthroplasty. This exam was performed according to our departmental dose-optimization program, which includes automated exposure control, adjustment of the mA and/or kV according to patient size and/or use of iterative reconstruction technique. Pelvis X-Ray 02/08/17 10:22 IMPRESSION: Postoperative changes otherwise negative pelvis. Status: Imported from PACS Assessment & Plan - Diagnosis (1) History of left hip replacement Is this a current diagnosis for this admission?: Yes (2) Post-op pain Is this a current diagnosis for this admission?: Yes (3) Deep incisional surgical site infection Is this a current diagnosis for this admission?: Yes Plan: 56-year-old black male status post I&D yesterday. Sedimentation rate is 58. Hematocrit 33.8%. Gram stain is positive for gram-positive cocci in clusters. Patient is empirically being treated with vancomycin and rifampin pending further culture analysis. PICC line has been ordered. Mobilization with physical therapy and weightbearing as tolerated basis. - Time Time Spent with patient: 15-24 minutes Anticipated discharge: Home with Homehealth Within: Other
[2017-02-09 06:35] LABS: HEMOGLOBIN 7.8 g/dL (13.5-17.0)
[2017-02-09] MEDS: LANSOPRAZOLE 30 MG TAB.RAP.DR PO SCH (06:40)
[2017-02-09] MEDS: PREGABALIN 75 MG CAPSULE PO SCH ×5 (06:40→22:50)
--- NOTE | 2017-02-09 10:32 | RADIOLOGY REPORT (SQ) ---
EXAM DESCRIPTION: PICC INSERTION; FLUORO/CV PLACEMENT; U/S GUIDE FOR VASCULAR ACCESS COMPLETED DATE/TIME: 02/09/2017 10:11 am REASON FOR STUDY: antibiotic administration; ABX ADMINISTRATION; IV ACCESS COMPARISON: None. FLUOROSCOPY TIME: 23 seconds. 1 images saved to PACS. TECHNIQUE: Fluoroscopic and ultrasound guided PICC placement. LIMITATIONS: None. PROCEDURE: After written consent and assessment were obtained, the patient was brought into the fluo roscopy room and place supine on the table. Ultrasound was used on the patient's left arm for PICC a ccess. The left arm was prepped and draped in a sterile fashion along with the ultrasound probe. The entry site was anesthetized with 1% lidocaine. A 21 gauge 7 cm needle was advanced through the skin a nd into the basilic vein under live ultrasound guidance. An ultrasound image was saved to PACS confi rming access site. A .018 guide wire was then inserted through the needle and into the venous system . The needle was the removed and an 11 blade scalpel was used to make a 1cm skin incision. A 5 fr pe el-away sheath was advanced over the wire and into the venous system. A measurement was then made usi ng the existing wire and live fluoroscopic guidance. The wire was then removed and the trimmed. The P ICC was advanced through the peel-away sheath and into the venous system. The peel-away sheath was re moved and the catheter was adhered to the patients arm with a stat lock. The catheter was then aspira marvin and flushed and a sterile bandage was placed over the access site. A fluoroscopic spot image was saved to PACS confirming the catheter tip within the superior vena cava. IMPRESSION: SUCCESSFUL PLACEMENT OF A 5 FR DUAL LUMEN 46 CM PICC IN THE LEFT BASILIC VEIN. COMMENT: Patient medication list reviewed: Yes- Quality ID# [id number]:Eligible professional attests to doc umenting in the medical record they obtained, updated, or reviewed the patient's current medications. . Quality ID 145: Final reports for procedures using fluoroscopy that document radiation exposure zoila mike, or exposure time and number of fluorographic images (if radiation exposure indices are not avail able) Quality ID #76: The patient was prepped and draped using maximum sterile barrier technique including cap, mask, sterile gown, sterile gloves, a large sterile sheet, hand hygiene, and 2% Chlorhexidine fo r cutaneous antisepsis. When ultrasound is used, sterile ultrasound techniques are followed requiring sterile gel and sterile probes. TECHNICAL DOCUMENTATION: JOB ID: [id number] [facility] [employer] [facility] [employer]- All Rights Reserved
[2017-02-09] MEDS: RIFAMPIN 300 MG CAPSULE PO SCH ×2 (11:17→17:30)
[2017-02-09] MEDS: OXYCODONE HCL SR 10 MG TABLET PO SCH ×2 (11:17→22:52)
[2017-02-09] MEDS: PRENATAL VITAMIN W DHA CAPSULE PO SCH (11:17)
[2017-02-09] MEDS: METOPROLOL TARTRATE 50 MG TABLET PO SCH ×2 (11:18→22:50)
[2017-02-09] MEDS: ASPIRIN 81 MG TABLET, ENT COATED PO SCH (11:18)
[2017-02-09] MEDS: SENNOSIDES/DOCUSATE 8.6-50 MG 1 EACH TABLET PO SCH ×2 (11:18→17:30)
[2017-02-09] MEDS: FLUTICASONE NASAL SPRAY 50 MCG/SPRY 120 SPRAY/16 GM NASL SCH ×2 (11:19→22:39)
[2017-02-09] MEDS: LISINOPRIL 10 MG TABLET PO SCH (11:19)
[2017-02-09] MEDS: HYDROMORPHONE HCL INJ/PF 2 MG/ML AMPULE IV PRN (15:36)
[2017-02-10] MEDS: VANCOMYCIN HCL 1,250 MG in DEXTROSE 5%-WATER 250 ML IV SCH ×3 (02:26→22:34)
[2017-02-10] MEDS: LANSOPRAZOLE 30 MG TAB.RAP.DR PO SCH (05:09)
[2017-02-10] MEDS: MORPHINE SULFATE 10 MG/ML INJ IV PRN (05:09)
[2017-02-10] MEDS: PREGABALIN 75 MG CAPSULE PO SCH ×5 (05:10→22:33)
[2017-02-10 05:33] LABS: HEMATOCRIT 27.2 % (37.9-51.0); HEMOGLOBIN 9.1 g/dL (13.5-17.0); MEAN CORPUSCULAR HGB CONC 33.4 g/dL (32.0-36.0); MEAN CORPUSCULAR VOLUME 84 fl (80-97); PLATELET COUNT 321 10^3/uL (150-450); RED BLOOD COUNT 3.24 10^6/uL (4.35-5.55); RED CELL DISTRIBUTION WIDTH 15.7 % (11.5-14.0); WHITE BLOOD COUNT 11.1 10^3/uL (4.0-10.5)
--- NOTE | 2017-02-10 06:48 | PDOC PROGRESS REPORT ---
Subjective Progress Note for:: 02/10/17 Subjective:: 56-year-old -Honduran male 2 days status post incision and drainage of total left hip arthroplasty and was subsequently infected with MRSA. Patient awake and alert this morning lying recumbent in hospital bed. Patient reports his pain is much better than preoperatively that is been comfortable postoperatively. Reason For Visit: DRAINAGE,LEFT HIP WOUND Physical Exam Vital Signs: Temp Pulse Resp BP Pulse Ox 36.9 C 91 17 123/69 95 02/10/17 00:05 02/10/17 00:05 02/10/17 00:05 02/10/17 00:05 02/10/17 00:05 Intake & Output 02/08/17 02/09/17 02/10/17 06:59 06:59 06:59 Intake Total 2450 3860 4796 Output Total 1590 2930 1875 Balance 492 637 7496 Weight 110 kg General appearance: PRESENT: no acute distress, well-developed, well-nourished Respiratory exam: PRESENT: unlabored Pulses: PRESENT: normal dorsalis pedis pul, +2 pedal pulses bilateral Vascular exam: PRESENT: normal capillary refill Additional comments: Patient lying recumbent in hospital bed with left lower extremity in full extension. He has minimal pedal edema and brisk capillary refill to toes on bilateral lower extremities. He is nontender to palpation and his dressing had recently been changed. This dressing is clean dry and intact. His sensory and motor functions are intact and his distal neurovascular exam is intact. Musculoskeletal exam: PRESENT: ambulatory Additional comments: Patient has made slow progress with therapy as they visited him on postop day 0 however did not work with him yesterday. He will continue to work with physical therapy to improve strength and range of motion of left lower extremity work towards independent ambulation. Neurological exam: PRESENT: alert, awake, oriented to person, oriented to place , oriented to time, oriented to situation, CN II-XII grossly intact. ABSENT: motor sensory deficit Psychiatric exam: PRESENT: appropriate affect, normal mood. ABSENT: homicidal ideation, suicidal ideation Skin exam: PRESENT: dry, intact, warm. ABSENT: cyanosis, rash Results Laboratory Results: 02/10/17 05:00 02/09/17 05:02 02/07/17 02/10/17 10:00 05:00 WBC 11.1 H RBC 3.24 L Hgb 9.1 L Hct 27.2 L MCV 84 MCH 28.0 MCHC 33.4 RDW 15.7 H Plt Count 321 Blood Type O POSITIVE Antibody Screen NEGATIVE 02/07/17 13:30 Hip - Superficial Gram Stain - Final 02/07/17 13:30 Hip - Superficial Wound Culture - Final Mrsa (Meth Resis Staph Aureus) Impressions: Lower Extremity CT 02/06/17 23:18 IMPRESSION: 1. No acute abnormality of the left hip identified. No definite abnormalities of the left hip arthroplasty. This exam was performed according to our departmental dose-optimization program, which includes automated exposure control, adjustment of the mA and/or kV according to patient size and/or use of iterative reconstruction technique. Pelvis X-Ray 02/08/17 10:22 IMPRESSION: Postoperative changes otherwise negative pelvis. Guidance Fluoroscopy 02/09/17 00:00 IMPRESSION: SUCCESSFUL PLACEMENT OF A 5 FR DUAL LUMEN 46 CM PICC IN THE LEFT BASILIC VEIN. Interventional Vascular Procedure 02/09/17 00:00 IMPRESSION: SUCCESSFUL PLACEMENT OF A 5 FR DUAL LUMEN 46 CM PICC IN THE LEFT BASILIC VEIN. PICC Line Insertion 02/09/17 00:00 IMPRESSION: SUCCESSFUL PLACEMENT OF A 5 FR DUAL LUMEN 46 CM PICC IN THE LEFT BASILIC VEIN. Assessment & Plan - Diagnosis (1) Deep incisional surgical site infection Qualifiers: Encounter type: subsequent encounter Qualified Code(s): T81.4XXD - Infection following a procedure, subsequent encounter Is this a current diagnosis for this admission?: Yes Plan: Patient's intraoperative cultures revealed gram-positive cocci and group B beta strep. Patient's PICC line was placed yesterday. This will facilitate IV infusion of IV antibiotics over the next 6 weeks to combat this infection. - Plan Summary Plan Summary: 56-year-old -Honduran male 2 days status post incision and drainage for deep surgical site infection status post total left hip arthroplasty. Patient makes slow progress with physical therapy as they only saw him on his postop day 0. He will continue to work with physical therapy to improve strength range of motion of left lower extremity. Patient's intraoperative cultures show evidence of growth of group B strep as well as gram-positive cocci. He is currently on IV antibiotics including vancomycin and rifampin. This seems to be an appropriate antibiotic choice for the bacteria that have grown. He will remain on these antibiotics. His PICC line was placed yesterday and will facilitate IV infusion of these antibiotics over the next 6 weeks. Pending his progress with physical therapy we will plan for discharge possibly tomorrow or early next week.
[2017-02-10] MEDS: HYDROMORPHONE HCL INJ/PF 2 MG/ML AMPULE IV PRN ×3 (09:45→20:18)
[2017-02-10] MEDS: SENNOSIDES/DOCUSATE 8.6-50 MG 1 EACH TABLET PO SCH ×2 (09:50→17:13)
[2017-02-10] MEDS: OXYCODONE HCL SR 10 MG TABLET PO SCH (09:50)
[2017-02-10] MEDS: PRENATAL VITAMIN W DHA CAPSULE PO SCH (09:50)
[2017-02-10] MEDS: ASPIRIN 81 MG TABLET, ENT COATED PO SCH (09:51)
[2017-02-10] MEDS: RIFAMPIN 300 MG CAPSULE PO SCH ×2 (09:51→17:13)
[2017-02-10] MEDS: NORMAL SALINE 10 ML SDV (SCHEDULED) IV SCH ×2 (09:52→22:34)
[2017-02-10] MEDS: METOPROLOL TARTRATE 50 MG TABLET PO SCH ×2 (09:53→22:35)
[2017-02-10] MEDS: LISINOPRIL 10 MG TABLET PO SCH (09:53)
[2017-02-10] MEDS: FLUTICASONE NASAL SPRAY 50 MCG/SPRY 120 SPRAY/16 GM NASL SCH ×2 (10:22→22:32)
[2017-02-11] MEDS: NORMAL SALINE 10 ML SDV (AFTER EACH USE) IV PRN ×2 (04:58→20:45)
[2017-02-11] MEDS: HYDROMORPHONE HCL INJ/PF 2 MG/ML AMPULE IV PRN ×3 (04:58→20:45)
[2017-02-11 05:20] LABS: HEMATOCRIT 26.8 % (37.9-51.0); HEMOGLOBIN 9.1 g/dL (13.5-17.0); MEAN CORPUSCULAR HEMOGLOBIN 28.3 pg (27.0-33.4); MEAN CORPUSCULAR HGB CONC 33.8 g/dL (32.0-36.0); MEAN CORPUSCULAR VOLUME 84 fl (80-97); PLATELET COUNT 337 10^3/uL (150-450); RED CELL DISTRIBUTION WIDTH 15.8 % (11.5-14.0); WHITE BLOOD COUNT 10.6 10^3/uL (4.0-10.5)
[2017-02-11] MEDS: LANSOPRAZOLE 30 MG TAB.RAP.DR PO SCH (06:17)
[2017-02-11] MEDS: VANCOMYCIN HCL 1,250 MG in DEXTROSE 5%-WATER 250 ML IV SCH ×3 (06:18→22:22)
[2017-02-11] MEDS: PREGABALIN 75 MG CAPSULE PO SCH ×5 (06:18→22:22)
--- NOTE | 2017-02-11 07:56 | PDOC PROGRESS REPORT ---
Subjective Progress Note for:: 02/11/17 Reason For Visit: DRAINAGE,LEFT HIP WOUND 56-year-old black male approximately 1 month status post hip arthroplasty with subsequent MRSA periprosthetic infection Physical Exam Vital Signs: Temp Pulse Resp BP Pulse Ox 36.8 C 95 16 128/70 H 96 02/11/17 00:17 02/11/17 00:17 02/11/17 00:17 02/11/17 00:17 02/11/17 00:17 Intake & Output 02/10/17 02/11/17 02/12/17 06:59 06:59 06:59 Intake Total 5862 2358 Output Total 4275 2620 Balance 1587 -262 Weight 111.4 kg 111.8 kg General appearance: PRESENT: mild distress Head exam: PRESENT: normocephalic Respiratory exam: PRESENT: unlabored Cardiovascular exam: PRESENT: RRR Pulses: PRESENT: +1 pedal pulses bilateral Vascular exam: PRESENT: normal capillary refill GI/Abdominal exam: PRESENT: soft Rectal exam: PRESENT: deferred Extremities exam: PRESENT: other - Left hip Chetan-Sanchez drain continues to be productive of serosanguineous fluid. Cultures positive for MRSA. Patient continues to have considerable difficulty in attempting to weight-bear on the left lower extremity at this point. Neurological exam: PRESENT: alert, awake, oriented to person, oriented to place , oriented to time, oriented to situation. ABSENT: motor sensory deficit Psychiatric exam: PRESENT: appropriate affect, normal mood. ABSENT: homicidal ideation, suicidal ideation Skin exam: PRESENT: dry, intact, warm. ABSENT: cyanosis, rash Results Laboratory Results: 02/11/17 05:00 02/10/17 15:45 02/10/17 02/11/17 15:45 05:00 WBC 10.6 H RBC 3.20 L Hgb 9.1 L Hct 26.8 L MCV 84 MCH 28.3 MCHC 33.8 RDW 15.8 H Plt Count 337 Creatinine 1.30 H Est GFR ( Amer) > 60 Est GFR (Non-Af Amer) 57 L 02/08/17 09:42 Hip - Deep Wound Gram Stain - Final 02/08/17 09:42 Hip - Deep Wound Wound Culture - Final Mrsa (Meth Resis Staph Aureus) Group B Beta Streptococcus No Anaerobic Organisms 02/08/17 09:40 Hip - Superficial Gram Stain - Final 02/08/17 09:40 Hip - Superficial Wound Culture - Final Mrsa (Meth Resis Staph Aureus) Group B Beta Streptococcus No Anaerobic Organisms Impressions: Lower Extremity CT 02/06/17 23:18 IMPRESSION: 1. No acute abnormality of the left hip identified. No definite abnormalities of the left hip arthroplasty. This exam was performed according to our departmental dose-optimization program, which includes automated exposure control, adjustment of the mA and/or kV according to patient size and/or use of iterative reconstruction technique. Pelvis X-Ray 02/08/17 10:22 IMPRESSION: Postoperative changes otherwise negative pelvis. Guidance Fluoroscopy 02/09/17 00:00 IMPRESSION: SUCCESSFUL PLACEMENT OF A 5 FR DUAL LUMEN 46 CM PICC IN THE LEFT BASILIC VEIN. Interventional Vascular Procedure 02/09/17 00:00 IMPRESSION: SUCCESSFUL PLACEMENT OF A 5 FR DUAL LUMEN 46 CM PICC IN THE LEFT BASILIC VEIN. PICC Line Insertion 02/09/17 00:00 IMPRESSION: SUCCESSFUL PLACEMENT OF A 5 FR DUAL LUMEN 46 CM PICC IN THE LEFT BASILIC VEIN. Status: Imported from PACS Assessment & Plan - Diagnosis (1) History of left hip replacement Is this a current diagnosis for this admission?: Yes (2) Post-op pain Is this a current diagnosis for this admission?: Yes (3) Deep incisional surgical site infection Qualifiers: Encounter type: subsequent encounter Qualified Code(s): T81.4XXD - Infection following a procedure, subsequent encounter Is this a current diagnosis for this admission?: Yes Plan: Plan will be to continue vancomycin and rifampin. Continue efforts at weightbearing as tolerated ambulation. Continue to empty the Chetan-Sanchez drain 3 times daily and record outputs. - Time Time Spent with patient: Less than 15 minutes Anticipated discharge: Other Within: Other
[2017-02-11] MEDS: PRENATAL VITAMIN W DHA CAPSULE PO SCH (10:46)
[2017-02-11] MEDS: METOPROLOL TARTRATE 50 MG TABLET PO SCH ×2 (10:46→22:22)
[2017-02-11] MEDS: SENNOSIDES/DOCUSATE 8.6-50 MG 1 EACH TABLET PO SCH ×2 (10:47→17:21)
[2017-02-11] MEDS: RIFAMPIN 300 MG CAPSULE PO SCH ×2 (10:47→17:21)
[2017-02-11] MEDS: ASPIRIN 81 MG TABLET, ENT COATED PO SCH (10:47)
[2017-02-11] MEDS: LISINOPRIL 10 MG TABLET PO SCH (10:47)
[2017-02-11] MEDS: NORMAL SALINE 10 ML SDV (SCHEDULED) IV SCH ×2 (10:48→22:22)
[2017-02-11] MEDS: FLUTICASONE NASAL SPRAY 50 MCG/SPRY 120 SPRAY/16 GM NASL SCH ×2 (10:48→22:23)
[2017-02-12] MEDS: PREGABALIN 75 MG CAPSULE PO SCH ×5 (05:41→22:04)
[2017-02-12] MEDS: HYDROMORPHONE HCL INJ/PF 2 MG/ML AMPULE IV PRN ×4 (05:42→22:04)
[2017-02-12] MEDS: NORMAL SALINE 10 ML SDV (AFTER EACH USE) IV PRN (05:42)
[2017-02-12] MEDS: LANSOPRAZOLE 30 MG TAB.RAP.DR PO SCH (05:42)
[2017-02-12] MEDS: VANCOMYCIN HCL 1,250 MG in DEXTROSE 5%-WATER 250 ML IV SCH ×3 (06:16→22:58)
--- NOTE | 2017-02-12 07:57 | PDOC PROGRESS REPORT ---
Subjective Progress Note for:: 02/12/17 Reason For Visit: DRAINAGE,LEFT HIP WOUND 56-year-old male status post irrigation debridement of the left [place]-prosthetic MRSA infection. Physical Exam Vital Signs: Temp Pulse Resp BP Pulse Ox 36.7 C 88 18 136/70 H 93 02/12/17 00:10 02/12/17 00:10 02/12/17 00:10 02/12/17 00:10 02/12/17 00:10 Intake & Output 02/11/17 02/12/17 02/13/17 06:59 06:59 06:59 Intake Total 2958 1991 Output Total 2620 1745 Balance 338 247 Weight 111.8 kg General appearance: PRESENT: mild distress Head exam: PRESENT: normocephalic Respiratory exam: PRESENT: unlabored Cardiovascular exam: PRESENT: RRR Pulses: PRESENT: +1 pedal pulses bilateral Vascular exam: PRESENT: normal capillary refill GI/Abdominal exam: PRESENT: soft Rectal exam: PRESENT: deferred Musculoskeletal exam: PRESENT: other - Left hip dressing dry. Chetan-Sanchez drain continues to be productive. Neurological exam: PRESENT: alert, awake, oriented to person, oriented to place , oriented to time, oriented to situation. ABSENT: motor sensory deficit Psychiatric exam: PRESENT: appropriate affect, normal mood. ABSENT: homicidal ideation, suicidal ideation Skin exam: PRESENT: dry, intact, warm. ABSENT: cyanosis, rash Results Laboratory Results: 02/11/17 05:00 02/10/17 15:45 Impressions: Lower Extremity CT 02/06/17 23:18 IMPRESSION: 1. No acute abnormality of the left hip identified. No definite abnormalities of the left hip arthroplasty. This exam was performed according to our departmental dose-optimization program, which includes automated exposure control, adjustment of the mA and/or kV according to patient size and/or use of iterative reconstruction technique. Pelvis X-Ray 02/08/17 10:22 IMPRESSION: Postoperative changes otherwise negative pelvis. Guidance Fluoroscopy 02/09/17 00:00 IMPRESSION: SUCCESSFUL PLACEMENT OF A 5 FR DUAL LUMEN 46 CM PICC IN THE LEFT BASILIC VEIN. Interventional Vascular Procedure 02/09/17 00:00 IMPRESSION: SUCCESSFUL PLACEMENT OF A 5 FR DUAL LUMEN 46 CM PICC IN THE LEFT BASILIC VEIN. PICC Line Insertion 02/09/17 00:00 IMPRESSION: SUCCESSFUL PLACEMENT OF A 5 FR DUAL LUMEN 46 CM PICC IN THE LEFT BASILIC VEIN. Assessment & Plan - Diagnosis (1) History of left hip replacement Is this a current diagnosis for this admission?: Yes (2) Post-op pain Is this a current diagnosis for this admission?: Yes (3) Deep incisional surgical site infection Qualifiers: Encounter type: subsequent encounter Qualified Code(s): T81.4XXD - Infection following a procedure, subsequent encounter Is this a current diagnosis for this admission?: Yes Plan: Mobilization with physical therapy and weightbearing as tolerated basis. Anticipate 6 weeks of IV antibiotic therapy.
[2017-02-12] MEDS: LISINOPRIL 10 MG TABLET PO SCH (11:38)
[2017-02-12] MEDS: SENNOSIDES/DOCUSATE 8.6-50 MG 1 EACH TABLET PO SCH ×2 (11:38→17:20)
[2017-02-12] MEDS: METOPROLOL TARTRATE 50 MG TABLET PO SCH ×2 (11:39→22:04)
[2017-02-12] MEDS: PRENATAL VITAMIN W DHA CAPSULE PO SCH (11:39)
[2017-02-12] MEDS: ASPIRIN 81 MG TABLET, ENT COATED PO SCH (11:39)
[2017-02-12] MEDS: RIFAMPIN 300 MG CAPSULE PO SCH ×2 (11:39→17:19)
[2017-02-12] MEDS: NORMAL SALINE 10 ML SDV (SCHEDULED) IV SCH ×2 (11:40→22:04)
[2017-02-12] MEDS: FLUTICASONE NASAL SPRAY 50 MCG/SPRY 120 SPRAY/16 GM NASL SCH ×2 (11:41→22:10)
[2017-02-13] MEDS: LANSOPRAZOLE 30 MG TAB.RAP.DR PO SCH (06:48)
[2017-02-13] MEDS: VANCOMYCIN HCL 1,250 MG in DEXTROSE 5%-WATER 250 ML IV SCH ×3 (06:48→23:18)
[2017-02-13] MEDS: PREGABALIN 75 MG CAPSULE PO SCH ×5 (06:48→21:40)
[2017-02-13] MEDS: HYDROMORPHONE HCL INJ/PF 2 MG/ML AMPULE IV PRN ×3 (06:49→23:18)
[2017-02-13 07:36] LABS: VANCOMYCIN,TROUGH 16.7 ug/mL (5.0-20.0)
[2017-02-13] MEDS: ASPIRIN 81 MG TABLET, ENT COATED PO SCH (10:31)
[2017-02-13] MEDS: RIFAMPIN 300 MG CAPSULE PO SCH ×2 (10:32→18:25)
[2017-02-13] MEDS: SENNOSIDES/DOCUSATE 8.6-50 MG 1 EACH TABLET PO SCH ×2 (10:32→18:25)
[2017-02-13] MEDS: METOPROLOL TARTRATE 50 MG TABLET PO SCH ×2 (10:33→21:40)
[2017-02-13] MEDS: NORMAL SALINE 10 ML SDV (SCHEDULED) IV SCH ×2 (10:34→21:42)
[2017-02-13] MEDS: LISINOPRIL 10 MG TABLET PO SCH (10:34)
[2017-02-13] MEDS: PRENATAL VITAMIN W DHA CAPSULE PO SCH (10:35)
[2017-02-13] MEDS: FLUTICASONE NASAL SPRAY 50 MCG/SPRY 120 SPRAY/16 GM NASL SCH ×2 (10:35→21:41)
--- NOTE | 2017-02-13 18:08 | PDOC PROGRESS REPORT ---
Subjective Progress Note for:: 02/13/17 Subjective:: States he is ambulating more today than he had last couple days. No issues overnight Reason For Visit: DRAINAGE,LEFT HIP WOUND Physical Exam Vital Signs: Temp Pulse Resp BP Pulse Ox 36.6 C 82 18 126/69 H 95 02/13/17 15:08 02/13/17 15:08 02/13/17 11:13 02/13/17 15:08 02/13/17 15:08 Intake & Output 02/12/17 02/13/17 02/14/17 06:59 06:59 06:59 Intake Total 1991 2803 1196 Output Total 1741 0805 900 Balance 247 -1652 296 Weight 107.8 kg Adult Front & Back Image: 1 - Dressing with mild bloody drainage. Drain is intact. Patient is neurovascular intact distally with good sensation to light touch and good extension and flexion of the ankle and digits. He has good capillary refill as well. Results Laboratory Results: 02/11/17 05:00 02/10/17 15:45 Impressions: Lower Extremity CT 02/06/17 23:18 IMPRESSION: 1. No acute abnormality of the left hip identified. No definite abnormalities of the left hip arthroplasty. This exam was performed according to our departmental dose-optimization program, which includes automated exposure control, adjustment of the mA and/or kV according to patient size and/or use of iterative reconstruction technique. Pelvis X-Ray 02/08/17 10:22 IMPRESSION: Postoperative changes otherwise negative pelvis. Guidance Fluoroscopy 02/09/17 00:00 IMPRESSION: SUCCESSFUL PLACEMENT OF A 5 FR DUAL LUMEN 46 CM PICC IN THE LEFT BASILIC VEIN. Interventional Vascular Procedure 02/09/17 00:00 IMPRESSION: SUCCESSFUL PLACEMENT OF A 5 FR DUAL LUMEN 46 CM PICC IN THE LEFT BASILIC VEIN. PICC Line Insertion 02/09/17 00:00 IMPRESSION: SUCCESSFUL PLACEMENT OF A 5 FR DUAL LUMEN 46 CM PICC IN THE LEFT BASILIC VEIN. Assessment & Plan - Plan Summary Plan Summary: 56-year-old gentleman status post I&D and poly-exchange of the left total hip. 6 weeks of IV antibiotics. D/C planning
[2017-02-14] MEDS: PREGABALIN 75 MG CAPSULE PO SCH ×5 (05:04→22:29)
[2017-02-14] MEDS: LANSOPRAZOLE 30 MG TAB.RAP.DR PO SCH (05:05)
[2017-02-14] MEDS: HYDROMORPHONE HCL INJ/PF 2 MG/ML AMPULE IV PRN ×2 (05:35→22:29)
[2017-02-14] MEDS: VANCOMYCIN HCL 1,250 MG in DEXTROSE 5%-WATER 250 ML IV SCH ×3 (06:14→22:29)
--- NOTE | 2017-02-14 06:41 | PDOC PROGRESS REPORT ---
Subjective Progress Note for:: 02/14/17 Subjective:: 56-year-old -Armenian male 6 days status post incision and drainage as result of postoperative wound infection from a total left hip arthroplasty. Patient in the restroom this morning when entering the room. Patient notes no new issues overnight. Patient also reports that he desires to be discharged home tomorrow. Reason For Visit: DRAINAGE,LEFT HIP WOUND Physical Exam Vital Signs: Temp Pulse Resp BP Pulse Ox 36.9 C 92 17 130/65 H 97 02/13/17 20:20 02/13/17 20:20 02/13/17 20:20 02/13/17 20:20 02/13/17 20:20 Intake & Output 02/12/17 02/13/17 02/14/17 06:59 06:59 06:59 Intake Total 1991 2806 1446 Output Total 1698 5853 910 Balance 247 -2812 536 Weight 107.8 kg Physical Exam: Patient was in the restroom on rounds this morning. Therefore full exam was not able to be completed. However it was examined the patient is ambulatory with his walker and feels more mobile than previously. Physical exam is otherwise grossly unchanged from previous exam. General appearance: PRESENT: no acute distress, well-developed, well-nourished Respiratory exam: PRESENT: unlabored Musculoskeletal exam: PRESENT: ambulatory, other Additional comments: Patient ambulating to the restroom this morning with the use of wheeled walker. Psychiatric exam: PRESENT: appropriate affect, normal mood. ABSENT: homicidal ideation, suicidal ideation Skin exam: PRESENT: dry, intact, warm. ABSENT: cyanosis, rash Results Laboratory Results: 02/11/17 05:00 02/10/17 15:45 Impressions: Lower Extremity CT 02/06/17 23:18 IMPRESSION: 1. No acute abnormality of the left hip identified. No definite abnormalities of the left hip arthroplasty. This exam was performed according to our departmental dose-optimization program, which includes automated exposure control, adjustment of the mA and/or kV according to patient size and/or use of iterative reconstruction technique. Pelvis X-Ray 02/08/17 10:22 IMPRESSION: Postoperative changes otherwise negative pelvis. Guidance Fluoroscopy 02/09/17 00:00 IMPRESSION: SUCCESSFUL PLACEMENT OF A 5 FR DUAL LUMEN 46 CM PICC IN THE LEFT BASILIC VEIN. Interventional Vascular Procedure 02/09/17 00:00 IMPRESSION: SUCCESSFUL PLACEMENT OF A 5 FR DUAL LUMEN 46 CM PICC IN THE LEFT BASILIC VEIN. PICC Line Insertion 02/09/17 00:00 IMPRESSION: SUCCESSFUL PLACEMENT OF A 5 FR DUAL LUMEN 46 CM PICC IN THE LEFT BASILIC VEIN. Assessment & Plan - Diagnosis (1) Deep incisional surgical site infection Qualifiers: Encounter type: subsequent encounter Qualified Code(s): T81.4XXD - Infection following a procedure, subsequent encounter Is this a current diagnosis for this admission?: Yes - Plan Summary Plan Summary: 56-year-old -Armenian male 6 days status post incision and drainage and wound washout from surgical site infection as result of a total left hip arthroplasty. Patient has made progress with physical therapy ambulating up to 75 feet independently. He feels more confident, strong and mobile then previously. He will continue to work with home physical therapy once he is discharged. Based on his progress and desires it was decided the patient will likely be discharged tomorrow. He will be sent home with his PICC line in place for IV antibiotic infusion over the next 6 weeks.
[2017-02-14] MEDS: ASPIRIN 81 MG TABLET, ENT COATED PO SCH (10:48)
[2017-02-14] MEDS: RIFAMPIN 300 MG CAPSULE PO SCH ×2 (10:48→17:35)
[2017-02-14] MEDS: SENNOSIDES/DOCUSATE 8.6-50 MG 1 EACH TABLET PO SCH ×2 (10:48→17:35)
[2017-02-14] MEDS: PRENATAL VITAMIN W DHA CAPSULE PO SCH (10:48)
[2017-02-14] MEDS: NORMAL SALINE 10 ML SDV (SCHEDULED) IV SCH ×2 (10:48→22:29)
[2017-02-14] MEDS: LISINOPRIL 10 MG TABLET PO SCH (10:48)
[2017-02-14] MEDS: METOPROLOL TARTRATE 50 MG TABLET PO SCH ×2 (10:48→22:29)
[2017-02-14] MEDS: FLUTICASONE NASAL SPRAY 50 MCG/SPRY 120 SPRAY/16 GM NASL SCH ×2 (10:50→22:30)
[2017-02-14] MEDS: RINGERS SOLUTION,LACTATED 1,000 ML IV PRN (22:37)
[2017-02-15] MEDS: NORMAL SALINE 10 ML SDV (AFTER EACH USE) IV PRN (02:02)
[2017-02-15] MEDS: HYDROMORPHONE HCL INJ/PF 2 MG/ML AMPULE IV PRN (02:03)
[2017-02-15] MEDS: MORPHINE SULFATE 10 MG/ML INJ IV PRN (04:47)
[2017-02-15] MEDS: LANSOPRAZOLE 30 MG TAB.RAP.DR PO SCH (05:55)
[2017-02-15] MEDS: PREGABALIN 75 MG CAPSULE PO SCH ×5 (05:56→21:57)
[2017-02-15] MEDS: VANCOMYCIN HCL 1,250 MG in DEXTROSE 5%-WATER 250 ML IV SCH ×3 (06:18→22:54)
--- NOTE | 2017-02-15 07:01 | PDOC PROGRESS REPORT ---
Subjective Progress Note for:: 02/15/17 Subjective:: 56-year-old -Bangladeshi male 1 week status post incision and drainage as a result of MRSA infection from a previous total left hip arthroplasty. Patient lying recumbent in hospital bed this morning stating that he was comfortable overnight. His OpSite dressing is saturated with yasmin blood and this is changed. Patient reports that he does not feel comfortable being discharged today and would like to plan for tomorrow. Reason For Visit: DRAINAGE,LEFT HIP WOUND Physical Exam Vital Signs: Temp Pulse Resp BP Pulse Ox 36.6 C 93 15 125/60 95 02/14/17 23:37 02/14/17 23:37 02/14/17 23:37 02/14/17 23:37 02/14/17 23:37 Intake & Output 02/13/17 02/14/17 02/15/17 06:59 06:59 06:59 Intake Total 2803 2067 1941 Output Total 4455 1490 700 Balance -6945 117 4983 Weight 107.8 kg 107.8 kg General appearance: PRESENT: no acute distress, well-developed, well-nourished Head exam: PRESENT: atraumatic, normocephalic Respiratory exam: PRESENT: unlabored Pulses: PRESENT: normal dorsalis pedis pul, +2 pedal pulses bilateral Additional comments: Patient lying recumbent in hospital bed with left lower extremity in full extension. His OpSite dressing is saturated with yasmin blood. This dressing is changed and replaced. New dressing is clean dry and intact. There is minimal pedal edema on bilateral lower extremities. He has brisk capillary refill to toes on bilateral feet. He is still somewhat tender to palpation. His legs are equal and his distal neurovascular exam is intact. Musculoskeletal exam: PRESENT: ambulatory Additional comments: Patient continues to make progress with physical therapy as he has ambulated 80 feet independently. He will continue to work with physical therapy throughout his stay in the hospital. He will also work with home physical therapy once he is discharged from the hospital to improve strength and range of motion of left lower extremity. Neurological exam: PRESENT: alert, awake, oriented to person, oriented to place , oriented to time, oriented to situation, CN II-XII grossly intact. ABSENT: motor sensory deficit Psychiatric exam: PRESENT: appropriate affect, normal mood. ABSENT: homicidal ideation, suicidal ideation Skin exam: PRESENT: dry, intact, warm. ABSENT: cyanosis, rash Results Laboratory Results: 02/11/17 05:00 02/10/17 15:45 Impressions: Lower Extremity CT 02/06/17 23:18 IMPRESSION: 1. No acute abnormality of the left hip identified. No definite abnormalities of the left hip arthroplasty. This exam was performed according to our departmental dose-optimization program, which includes automated exposure control, adjustment of the mA and/or kV according to patient size and/or use of iterative reconstruction technique. Pelvis X-Ray 02/08/17 10:22 IMPRESSION: Postoperative changes otherwise negative pelvis. Guidance Fluoroscopy 02/09/17 00:00 IMPRESSION: SUCCESSFUL PLACEMENT OF A 5 FR DUAL LUMEN 46 CM PICC IN THE LEFT BASILIC VEIN. Interventional Vascular Procedure 02/09/17 00:00 IMPRESSION: SUCCESSFUL PLACEMENT OF A 5 FR DUAL LUMEN 46 CM PICC IN THE LEFT BASILIC VEIN. PICC Line Insertion 02/09/17 00:00 IMPRESSION: SUCCESSFUL PLACEMENT OF A 5 FR DUAL LUMEN 46 CM PICC IN THE LEFT BASILIC VEIN. Assessment & Plan - Diagnosis (1) Deep incisional surgical site infection Qualifiers: Encounter type: subsequent encounter Qualified Code(s): T81.4XXD - Infection following a procedure, subsequent encounter Is this a current diagnosis for this admission?: Yes - Plan Summary Plan Summary: 56-year-old -Bangladeshi male 1 week status post incision and drainage as a result of an MRSA infection from total hip arthroplasty. Patient has remained comfortable and pain is well controlled. He has made progress of physical therapy ambulating up to 80 feet independently. He will continue to work with physical therapy throughout his stay at the hospital and also with home PT to improve strength and range of motion of left lower extremity. His OpSite dressing was changed this morning and a clean dry dressing was placed. We will plan for discharge from the hospital to patient's home tomorrow.
[2017-02-15] MEDS: LISINOPRIL 10 MG TABLET PO SCH (10:34)
[2017-02-15] MEDS: SENNOSIDES/DOCUSATE 8.6-50 MG 1 EACH TABLET PO SCH ×2 (10:34→17:57)
[2017-02-15] MEDS: PRENATAL VITAMIN W DHA CAPSULE PO SCH (10:34)
[2017-02-15] MEDS: METOPROLOL TARTRATE 50 MG TABLET PO SCH ×2 (10:34→21:57)
[2017-02-15] MEDS: RIFAMPIN 300 MG CAPSULE PO SCH ×2 (10:35→17:58)
[2017-02-15] MEDS: NORMAL SALINE 10 ML SDV (SCHEDULED) IV SCH ×2 (10:35→21:57)
[2017-02-15] MEDS: ASPIRIN 81 MG TABLET, ENT COATED PO SCH (10:35)
[2017-02-15] MEDS: FLUTICASONE NASAL SPRAY 50 MCG/SPRY 120 SPRAY/16 GM NASL SCH ×2 (10:36→21:54)
[2017-02-15] MEDS: RINGERS SOLUTION,LACTATED 1,000 ML IV PRN (15:48)
[2017-02-15] MEDS ORDERED: HYDROMORPHONE HCL INJ/PF 2 MG/ML AMPULE IV ONE (16:30)
[2017-02-15] MEDS: OXYCODONE-ACETAMINOPHEN 5-325 MG TABLET PO PRN (21:57)
[2017-02-16] MEDS: CYCLOBENZAPRINE HCL 10 MG TABLET PO PRN ×2 (00:55→19:50)
[2017-02-16] MEDS: ZOLPIDEM TARTRATE 5 MG TABLET PO PRN ×2 (00:55→21:35)
[2017-02-16] MEDS: HYDROMORPHONE HCL INJ/PF 2 MG/ML AMPULE IV PRN ×3 (02:22→13:26)
[2017-02-16] MEDS: PREGABALIN 75 MG CAPSULE PO SCH ×5 (05:49→21:35)
[2017-02-16] MEDS: LANSOPRAZOLE 30 MG TAB.RAP.DR PO SCH (05:50)
[2017-02-16] MEDS: VANCOMYCIN HCL 1,250 MG in DEXTROSE 5%-WATER 250 ML IV SCH ×2 (06:33→14:45)
--- NOTE | 2017-02-16 08:23 | PDOC DISCHARGE SUMMARY ---
General - Admit/Disc Date/PCP Admission Date/Primary Care Provider: 02/07/17 03:30 Discharge Date: 02/16/17 - Discharge Diagnosis (1) Deep incisional surgical site infection Is this a current diagnosis for this admission?: Yes - Additional Information Resuscitation Status: Full Code Discharge Diet: As Tolerated, Regular Discharge Activity: No Driving, No tub bath, Walk Frequently Home Medications: Cyclobenzaprine HCl [Flexeril 10 mg Tablet] 10 mg PO Q8HP PRN 02/07/17 Fluticasone Propionate [Flonase Nasal Clifton 50 Mcg/Clifton 16 gm] 1 spray NASL BID 02/07/17 Lisinopril [Zestril] 10 mg PO DAILY 02/07/17 Metoprolol Tartrate [Lopressor 50 mg Tablet] 50 mg PO Q12 02/07/17 Oxycodone HCl/Acetaminophen [Percocet 10-325 mg Tablet] 1 tab PO Q6HP PRN Pregabalin [Lyrica] 150 mg PO Q8 02/07/17 History of Present Illness History of Present Illness: JOHNSON TAMEZ is a 56 year old male with a deep surgical wound site infection as a result of a total left hip arthroplasty. He was admitted for an incision and drainage of the surgical site of the total left hip arthroplasty. Hospital Course Hospital Course: 56-year-old -[place] male who was admitted to the OR and underwent incision and drainage of surgical site from total left hip arthroplasty. He was taken to the PACU in satisfactory condition. He was then returned to the surgical floor and seen by physical therapy for weightbearing as tolerated. His pain was controlled by Dr. Angeles and nursing staff. He made progress with physical therapy ambulating up to 150 feet independently. He will be discharged home today or when weather permits with home health nursing, home physical therapy, with wheeled walker, bedside commode. Physical Exam Vital Signs: Temp Pulse Resp BP Pulse Ox 36.8 C 89 15 109/62 100 02/16/17 00:00 02/16/17 00:00 02/16/17 00:00 02/16/17 06:00 02/16/17 00:00 Intake & Output 02/15/17 02/16/17 02/17/17 06:59 06:59 06:59 Intake Total 2391 4088 Output Total 1720 2700 Balance 671 1388 Weight 107.8 kg General appearance: PRESENT: no acute distress, well-developed, well-nourished Head exam: PRESENT: atraumatic, normocephalic Additional Comments: Patient has CPAP machine placed over nose this morning. Respiratory exam: PRESENT: unlabored Pulses: PRESENT: normal dorsalis pedis pul, +2 pedal pulses bilateral Vascular exam: PRESENT: normal capillary refill Additional comments: Patient lying recumbent in hospital bed with bilateral lower extremities in full extension. Patient's OpSite dressing is saturated with yasmin blood. This dressing will be changed by nursing staff before patient is discharged today. He has brisk capillary refill to toes on bilateral lower extremities and no pedal edema. He is nontender to palpation and his distal neurovascular exam is intact. Musculoskeletal exam: PRESENT: ambulatory Additional comments: Patient makes great progress with physical therapy ambulating up to 150 feet independently. He will continue to work with home physical therapy to improve strength range of motion of left lower extremity and work towards further independent ambulation. Neurological exam: PRESENT: alert, awake, oriented to person, oriented to place , oriented to time, oriented to situation, CN II-XII grossly intact. ABSENT: motor sensory deficit Psychiatric exam: PRESENT: appropriate affect, normal mood. ABSENT: homicidal ideation, suicidal ideation Skin exam: PRESENT: dry, intact, warm. ABSENT: cyanosis, rash Results Laboratory Results: 02/11/17 05:00 02/10/17 15:45 Impressions: Lower Extremity CT 02/06/17 23:18 IMPRESSION: 1. No acute abnormality of the left hip identified. No definite abnormalities of the left hip arthroplasty. This exam was performed according to our departmental dose-optimization program, which includes automated exposure control, adjustment of the mA and/or kV according to patient size and/or use of iterative reconstruction technique. Pelvis X-Ray 02/08/17 10:22 IMPRESSION: Postoperative changes otherwise negative pelvis. Guidance Fluoroscopy 02/09/17 00:00 IMPRESSION: SUCCESSFUL PLACEMENT OF A 5 FR DUAL LUMEN 46 CM PICC IN THE LEFT BASILIC VEIN. Interventional Vascular Procedure 02/09/17 00:00 IMPRESSION: SUCCESSFUL PLACEMENT OF A 5 FR DUAL LUMEN 46 CM PICC IN THE LEFT BASILIC VEIN. PICC Line Insertion 02/09/17 00:00 IMPRESSION: SUCCESSFUL PLACEMENT OF A 5 FR DUAL LUMEN 46 CM PICC IN THE LEFT BASILIC VEIN. Plan Discharge Plan: 56-year-old -[place] male 1 week status post incision and drainage of deep and surgical site wound infection from total left hip arthroplasty. He will be discharged home today or when weather permits with home health nursing, home physical therapy, wheeled walker, bedside commode. Overnight it appears that he had issues with pain control however patient was also made aware that his Dilaudid and morphine were discontinued yesterday. I am leery that patient had an exaggerated response because he desires to be treated with certain pain medications that are not per the orthopedic pain protocol. His dressing was saturated with yasmin blood this morning and will be changed by nursing staff before his discharge. The visiting nurse service will then change his OpSite dressings when they see fit i.e. when it is saturated flank blood. He will follow-up with [facility] for surgery [address] Anegles and Troy CARRASCO for suture removal and reevaluation. Time Spent: Less than 30 Minutes
[2017-02-16] MEDS: OXYCODONE-ACETAMINOPHEN 5-325 MG TABLET PO PRN ×3 (09:06→19:50)
[2017-02-16] MEDS: LISINOPRIL 10 MG TABLET PO SCH (09:08)
[2017-02-16] MEDS: RIFAMPIN 300 MG CAPSULE PO SCH ×2 (09:08→17:55)
[2017-02-16] MEDS: SENNOSIDES/DOCUSATE 8.6-50 MG 1 EACH TABLET PO SCH ×2 (09:09→17:55)
[2017-02-16] MEDS: PRENATAL VITAMIN W DHA CAPSULE PO SCH (09:09)
[2017-02-16] MEDS: ASPIRIN 81 MG TABLET, ENT COATED PO SCH (09:09)
[2017-02-16] MEDS: METOPROLOL TARTRATE 50 MG TABLET PO SCH ×2 (09:11→21:34)
[2017-02-16] MEDS: FLUTICASONE NASAL SPRAY 50 MCG/SPRY 120 SPRAY/16 GM NASL SCH ×2 (09:12→21:36)
[2017-02-16] MEDS: NORMAL SALINE 10 ML SDV (SCHEDULED) IV SCH ×2 (09:12→21:35)
[2017-02-16] MEDS: NORMAL SALINE 10 ML SDV (AFTER EACH USE) IV PRN (14:45)
[2017-02-17] MEDS: OXYCODONE-ACETAMINOPHEN 5-325 MG TABLET PO PRN ×5 (00:11→22:50)
[2017-02-17] MEDS: VANCOMYCIN HCL 1,250 MG in DEXTROSE 5%-WATER 250 ML IV SCH ×3 (00:11→14:54)
[2017-02-17] MEDS: LANSOPRAZOLE 30 MG TAB.RAP.DR PO SCH (06:19)
[2017-02-17] MEDS: PREGABALIN 75 MG CAPSULE PO SCH ×5 (06:21→22:50)
[2017-02-17] MEDS: CYCLOBENZAPRINE HCL 10 MG TABLET PO PRN (06:21)
--- NOTE | 2017-02-17 07:21 | PDOC PROGRESS REPORT ---
Subjective Progress Note for:: 02/17/17 Subjective:: Patient lying recumbent in hospital bed with bilateral lower extremities in full extension. Patient reports he is comfortable yet his pain peaks and troughs consistently. Reason For Visit: DRAINAGE,LEFT HIP WOUND Physical Exam Vital Signs: Temp Pulse Resp BP Pulse Ox 36.9 C 81 16 118/55 L 98 02/16/17 23:05 02/16/17 23:05 02/16/17 23:05 02/16/17 23:05 02/16/17 23:05 Intake & Output 02/16/17 02/17/17 02/18/17 06:59 06:59 06:59 Intake Total 4088 1110 Output Total 2700 990 Balance 1388 120 Physical Exam: Patient's physical exam grossly unchanged from exam completed on February 16, 2017. General appearance: PRESENT: no acute distress, well-developed, well-nourished Head exam: PRESENT: atraumatic, normocephalic Respiratory exam: PRESENT: unlabored Pulses: PRESENT: normal dorsalis pedis pul, +2 pedal pulses bilateral Vascular exam: PRESENT: normal capillary refill Additional comments: Patient somewhat tender to palpation over left hip surgical site. His OpSite dressing is saturated with yasmin blood. This dressing is removed and new dressing placed and is clean dry and intact. His PICC line is in place on his left upper extremity. This will remain in place for the next 6 weeks as he receives IV infusion therapy with vancomycin and rifampin. Musculoskeletal exam: PRESENT: ambulatory Additional comments: Patient notes he is ambulatory to and from the restroom to hospital bed and from hospital bed to chair at the bedside. Neurological exam: PRESENT: alert, awake, oriented to person, oriented to place , oriented to time, oriented to situation, CN II-XII grossly intact. ABSENT: motor sensory deficit Psychiatric exam: PRESENT: appropriate affect, normal mood. ABSENT: homicidal ideation, suicidal ideation Skin exam: PRESENT: dry, intact, warm. ABSENT: cyanosis, rash Results Laboratory Results: 02/11/17 05:00 02/10/17 15:45 Impressions: Lower Extremity CT 02/06/17 23:18 IMPRESSION: 1. No acute abnormality of the left hip identified. No definite abnormalities of the left hip arthroplasty. This exam was performed according to our departmental dose-optimization program, which includes automated exposure control, adjustment of the mA and/or kV according to patient size and/or use of iterative reconstruction technique. Pelvis X-Ray 02/08/17 10:22 IMPRESSION: Postoperative changes otherwise negative pelvis. Guidance Fluoroscopy 02/09/17 00:00 IMPRESSION: SUCCESSFUL PLACEMENT OF A 5 FR DUAL LUMEN 46 CM PICC IN THE LEFT BASILIC VEIN. Interventional Vascular Procedure 02/09/17 00:00 IMPRESSION: SUCCESSFUL PLACEMENT OF A 5 FR DUAL LUMEN 46 CM PICC IN THE LEFT BASILIC VEIN. PICC Line Insertion 02/09/17 00:00 IMPRESSION: SUCCESSFUL PLACEMENT OF A 5 FR DUAL LUMEN 46 CM PICC IN THE LEFT BASILIC VEIN. Assessment & Plan - Diagnosis (1) Deep incisional surgical site infection Qualifiers: Encounter type: subsequent encounter Qualified Code(s): T81.4XXD - Infection following a procedure, subsequent encounter Is this a current diagnosis for this admission?: Yes - Plan Summary Plan Summary: 56-year-old -[place] male status post incision and drainage for deep wound surgical site infection resulting from left hip total arthroplasty. Patient's pain remains somewhat well controlled however he appears to have issues with pain overnight. He still remains ambulatory postoperatively ambulating maximum of 150 feet. He will likely be discharged today to his home with home health nursing, home physical therapy, wheeled walker bedside commode. He will also be discharged with his PICC line in place on his left upper extremity. He will receive IV infusions of vancomycin and rifampin over the next 6 weeks.
[2017-02-17] MEDS: ASPIRIN 81 MG TABLET, ENT COATED PO SCH (09:33)
[2017-02-17] MEDS: PRENATAL VITAMIN W DHA CAPSULE PO SCH (09:33)
[2017-02-17] MEDS: SENNOSIDES/DOCUSATE 8.6-50 MG 1 EACH TABLET PO SCH ×2 (09:34→17:38)
[2017-02-17] MEDS: LISINOPRIL 10 MG TABLET PO SCH (09:34)
[2017-02-17] MEDS: RIFAMPIN 300 MG CAPSULE PO SCH ×2 (09:34→17:38)
[2017-02-17] MEDS: METOPROLOL TARTRATE 50 MG TABLET PO SCH ×2 (09:35→22:50)
[2017-02-17] MEDS: NORMAL SALINE 10 ML SDV (SCHEDULED) IV SCH ×2 (09:37→22:50)
[2017-02-17] MEDS: FLUTICASONE NASAL SPRAY 50 MCG/SPRY 120 SPRAY/16 GM NASL SCH ×2 (09:37→22:51)
[2017-02-17] MEDS ORDERED: ALTEPLASE INJ 2 MG VIAL (CATH CLEARANCE) IV ONE (21:15)
[2017-02-17] MEDS ORDERED: VANCOMYCIN HCL 1,250 MG in DEXTROSE 5%-WATER 250 ML IV ONE (22:00)
[2017-02-18 00:11] VITALS: BP 109/62
== END 2017-02-18 01:30 | disposition home health service (06) | DRG 468 ==
LOC: ER 22:59 → OBSVTOIN 02-07 03:30 → EH 02-07 03:30 → 4W 02-07 07:59 → 4S 02-07 19:21
PROVIDERS: ADMIT Orthopaedic Surgery; ATTEND Orthopaedic Surgery
PROC: 0SUS09Z Supplement Left Hip Joint, Femoral Surface with Liner, Open Approach (ICD-10-PCS; 2017-02-08)
PROC: 0SPB09Z Removal of Liner from Left Hip Joint, Open Approach (ICD-10-PCS; principal; 2017-02-08 09:45)
PROC: 02HV33Z Insertion of Infusion Device into Superior Vena Cava, Percutaneous Approach (ICD-10-PCS; 2017-02-09)
PROC: B5181ZA Fluoroscopy of Superior Vena Cava using Low Osmolar Contrast, Guidance (ICD-10-PCS; 2017-02-09)
PROC: B548ZZA Ultrasonography of Superior Vena Cava, Guidance (ICD-10-PCS; 2017-02-09)
DX: T84.52XA Infection and inflammatory reaction due to internal left hip prosthesis, initial encounter (principal); B95.62 Methicillin resistant Staphylococcus aureus infection as the cause of diseases classified elsewhere; B95.1 Streptococcus, group B, as the cause of diseases classified elsewhere; Y83.8 Other surgical procedures as the cause of abnormal reaction of the patient, or of later complication, without mention of misadventure at the time of the procedure; I10 Essential (primary) hypertension; E78.00 Pure hypercholesterolemia, unspecified; G47.30 Sleep apnea, unspecified; E11.9 Type 2 diabetes mellitus without complications; F17.200 Nicotine dependence, unspecified, uncomplicated; G89.18 Other acute postprocedural pain; Z96.643 Presence of artificial hip joint, bilateral; Z90.49 Acquired absence of other specified parts of digestive tract
CPT/HCPCS: 01210; 36415; 36430; 36569; 72170; 76937; 77001; 80048; 80202; 82565; 85025; 85027; 85652; 86140; 86850; 86900; 86901; 86920; 87070; 87075; 87077; 87186; 87205; 94799; 96372; 96374; 96375; 99283; 99285; C9290; G8978-GP; G8979-GP; G8987-GO; G8988-GO; J0131; J0330; J1100; J1170; J1642; J1885; J2250; J2270; J2405; J2704; J2997; J3010; J3370; J3490; J7060; J7120; P9016

== ENCOUNTER 2017-02-18 11:02 | Emergency (ER) | payer OTHER, MEDICARE, MEDICAID ==
[2017-02-18] MEDS ORDERED: OXYCODONE-ACETAMINOPHEN 5-325 MG TABLET PO ONE ×3 (11:16→11:27)
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
[2017-02-18 12:13] LABS: ABSOLUTE BASOPHILS # (AUTO) 0.1 10^3/uL (0.0-0.2); ABSOLUTE EOSINOPHILS # (AUTO) 0.3 10^3/uL (0.0-0.6); ABSOLUTE LYMPHOCYTES (AUTO) 1.9 10^3/uL (0.5-4.7); ABSOLUTE NEUT (AUTO) 9.4 10^3/uL (1.7-8.2); BASOPHILS % (AUTO) 0.5 % (0-2); EOSINOPHILS % (AUTO) 2.1 % (0-6); HEMATOCRIT 30.9 % (37.9-51.0); HEMOGLOBIN 10.1 g/dL (13.5-17.0); LYMPHOCYTES % (AUTO) 15.2 % (13-45); MEAN CORPUSCULAR HEMOGLOBIN 27.4 pg (27.0-33.4); MEAN CORPUSCULAR HGB CONC 32.6 g/dL (32.0-36.0); MEAN CORPUSCULAR VOLUME 84 fl (80-97); MONOCYTES % (AUTO) 7.6 % (3-13); PLATELET COUNT 434 10^3/uL (150-450); RED BLOOD COUNT 3.67 10^6/uL (4.35-5.55); RED CELL DISTRIBUTION WIDTH 16.6 % (11.5-14.0); SEGMENTED NEUTROPHILS % (AUTO) 74.6 % (42-78); TOTAL CELLS COUNTED % (AUTO) 100 %; WHITE BLOOD COUNT 12.6 10^3/uL (4.0-10.5)
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
--- NOTE | 2017-02-18 12:20 | RADIOLOGY REPORT (SQ) ---
EXAM DESCRIPTION: FEMUR LEFT COMPLETED DATE/TIME: 02/18/2017 12:10 pm REASON FOR STUDY: left femur pain COMPARISON: None. NUMBER OF VIEWS: Two views. TECHNIQUE: Two radiographic images acquired of the left femur to include hip and knee in at least on e projection. LIMITATIONS: None. FINDINGS: MINERALIZATION: Normal. BONES: Total hip arthroplasty. No acute fracture. No worrisome bone lesions. SOFT TISSUES: No obvious swelling or foreign body. OTHER: Skin jeannie remain in place. IMPRESSION: NO ACUTE OSSEOUS ABNORMALITY OR HARDWARE COMPLICATION. TECHNICAL DOCUMENTATION: JOB ID: [id number] [employer]- All Rights Reserved
[2017-02-18 12:34] LABS: ALANINE AMINOTRANSFERASE 39 U/L (21-72); ALBUMIN 3.9 g/dL (3.5-5.0); ALKALINE PHOSPHATASE 123 U/L (38-126); ANION GAP 9 (5-19); ASPARTATE AMINO TRANSFERASE 24 U/L (17-59); BILIRUBIN,DIRECT 0.1 mg/dL (0.0-0.4); BILIRUBIN,TOTAL 0.1 mg/dL (0.2-1.3); BLOOD UREA NITROGEN 19 mg/dL (7-20); CALCIUM 10.2 mg/dL (8.4-10.2); CARBON DIOXIDE 28 mmol/L (22-30); CHLORIDE 102 mmol/L (98-107); GLUCOSE 102 mg/dL (75-110); POTASSIUM 4.3 mmol/L (3.6-5.0); SODIUM 139.4 mmol/L (137-145); TOTAL PROTEIN 6.8 g/dL (6.3-8.2)
[2017-02-18] MEDS ORDERED: VANCOMYCIN HCL INJ 1000 MG VIAL IV ONE (15:36)
[2017-02-18] MEDS ORDERED: NORMAL SALINE INJ/PF 0.9% 10 ML SDV IV SCH (18:00)
[2017-02-18 18:13] VITALS: BP 129/69
== END 2017-02-18 18:03 | disposition home or self-care (01) ==
LOC: ER 11:02
DX: S70.02XA Contusion of left hip, initial encounter (principal); V58.6XXA Passenger in pick-up truck or van injured in noncollision transport accident in traffic accident, initial encounter; Y93.89 Activity, other specified; T81.4XXA Infection following a procedure, initial encounter; Y83.8 Other surgical procedures as the cause of abnormal reaction of the patient, or of later complication, without mention of misadventure at the time of the procedure; Z48.01 Encounter for change or removal of surgical wound dressing; M25.552 Pain in left hip; M25.551 Pain in right hip; E11.9 Type 2 diabetes mellitus without complications; I10 Essential (primary) hypertension; Z96.643 Presence of artificial hip joint, bilateral; Z98.890 Other specified postprocedural states
CPT/HCPCS: 99285; 96365; 96366; 36415; 85025; 80053; 73552; 73522; J3370